=== PATIENT | male | born 1940 | race Caucasian/White ===

== ENCOUNTER 2021-05-31 14:13 | Outpatient (CLI) | payer MEDICARE, OTHER, SELFPAY | END 2021-05-31 14:14 | disposition home or self-care (01) | LOC: CHSOUTPT 14:28 | PROVIDERS: PCP Specialist; Visit Provider Specialist | DX: C44.329 Squamous cell carcinoma of skin of other parts of face (principal) | CPT/HCPCS: 88305 ==

== ENCOUNTER 2022-06-09 11:00 | Outpatient (RCR) | payer MEDICARE, OTHER, SELFPAY ==
--- NOTE | 2022-03-29 12:05 | PCCPR ---
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 Pt did state he was feeling whoozy . B/P 123/66. Call placed to cement block maker Dr. Douglas, notified of findings, no changes at this time, obtain 12 lead EKG and send report and EKG to office, states patient heart history leaves him predisposed to VTACH however it has not been witnessed yet . Pt okay to go home without further intervention at this time. No cardiac rehab restrictions. Instructed patient and to come to ER or call 911 if symptoms return or worsen.
--- NOTE | 2022-03-29 12:40 | ECG_ITS ---
Measurements Intervals [place] Rate: 72 P: 55 SD: 226 QRS: 64 QRSD: 105 T: 42 QT: 391 QTc: 430 Interpretive Statements SINUS RHYTHM WITH FIRST DEGREE AV BLOCK POSSIBLE LEFT ATRIAL ENLARGEMENT [-0.1mV P-WAVE IN V1/V2] POSSIBLE ANTERIOR MYOCARDIAL INFARCTION , OF INDETERMINATE AGE [30 ms Q WAVE IN V3/V4, OR R < 0.2 mV IN V4] NONSPECIFIC ST ABNORMALITY ABNORMAL ECG NO PREVIOUS ECG AVAILABLE FOR COMPARISON Electronically Signed On 03-30-2022 10:12:52 MONORAIL CAR OPERATOR by Gumaro Duncan M.D.
== END 2022-06-09 14:45 | disposition home or self-care (01) ==
DX: Z48.812 Encounter for surgical aftercare following surgery on the circulatory system (principal); Z98.890 Other specified postprocedural states
CPT/HCPCS: 93005; 93798

== ENCOUNTER 2022-12-18 07:46 | Outpatient (CLI) | payer MEDICARE, OTHER, SELFPAY | END 2022-12-18 07:47 | disposition home or self-care (01) | DX: R94.128 Abnormal results of other function studies of ear and other special senses (principal); Z01.118 Encounter for examination of ears and hearing with other abnormal findings; H90.3 Sensorineural hearing loss, bilateral | CPT/HCPCS: 92557; 92567 ==

== ENCOUNTER 2023-10-02 13:55 | Outpatient (CLI) | payer MEDICARE, OTHER, SELFPAY | END 2023-10-02 13:56 | disposition home or self-care (01) | LOC: CHSLAB 13:58 | PROVIDERS: PCP Specialist; Visit Provider Specialist | DX: C44.42 Squamous cell carcinoma of skin of scalp and neck (principal) | CPT/HCPCS: 88305 ==

== ENCOUNTER 2024-05-27 12:57 | Outpatient (CLI) | payer MEDICARE, OTHER, SELFPAY ==
--- OUTSIDE RECORDS SUMMARY | 2024-05-27 14:07 | XMS_ITS | Clinical Summary ---
Author Organization [facility] Address [address] [place] [id number] Care Team Providers Care Recreation Activities Coordinator Name Role Phone Unavailable Primary Care Provider Unavailabl e Social History Tobacco Use Types Packs/Day Years Used Date Smoking Tobacco: Never Assessed Sex and Gender Information Value Date Recorded Sex Assigned at Not on file Legal Sex Male 2:11 PM CDT Gender Identity Not on file Sexual Orientation Not on file Plan of Treatment Health Maintenance Due Date Last Done Comments DTaP, Tdap and Td Vaccines ( 1 - Tdap) 02/07/1959 Zoster Vaccines (1 of 2) 02/07/1990 Annual Medicare Wellness Visit 02/07/2005 Pneumococcal Vaccine: 65+ Ye ars (1 of 1 - PCV) 02/07/2005 RSV Immunization or 60+ Years (1 - 1-dose 75+ series) 02/07/2015 COVID-19 Vaccine ( - 2023-2 5 season) 2023 Meningococcal B Vaccine Aged Out No l onger eligible based on patient's age to complete this topic Meningococcal Vaccine Aged Out No chelsea melly eligible based on patient's age to complete this topic RSV Immunizations Under 20 Months Aged Out No longer eligible based on patient's age to complete [place] [id number] [facility]
--- OUTSIDE RECORDS SUMMARY | 2024-05-27 14:07 | XMS_ITS | Clinical Summary ---
Author Organization [facility] Address [facility] [facility] [address] [place] [address] Care Team Providers Care Milling Machine Operator Name Role Phone Unavailable Primary Care Provider Unavailabl e Source Comments [facility],non-owned Affiliates and Associated Physician Practices is amultiple site organization consisting of ambulatory clinics and hospital sitesin [place], [place], [place] and [place]. This disclosure is being madepursuant to the Care Everywhere program and may not contain all information available regarding this patient. Last updated 17.[facility] Allergies Active Allergy Reactions Criticality Noted Date Comments Levofloxacin Rash Low 02/04/2015 Medications * Be aware that medications may not be up to date on this document. Alwaysverify current medications with the patient. Medication Sig Dispensed Refills Start Date End Date Status tamsulosin (FLOMAX) 0.4 MG capsule Take one tab every other day Active travoprost, TIMOTHY free, (TRAVATAN Z) 0.004 % ophthalmic solution Instill 1 Drop into both eyes Active metoprolol succinate XL 24hr (TOPROL XL) 50 MG tablet Take 50 mg by mouth once daily Active [place]-3 Fatty Acids (OMEGA 3 PO) Active atorvastatin (LIPITOR) 10 MG tablet Take 10 mg by mouth at bedtime Active Vitamin D3 (CHOLECALCIFEROL) 2000 UNITS capsule Take 2,000 Units by mouth once daily Take 1-6 daily as needed. Active Cholecalciferol (D3 HIGH POTENCY) 2000 UNITS take 3 tablets daily 08/25/2013 Active aspirin (ASPIRIN) 81 MG tablet Take 81 mg by mouth once daily Active Active Problems Problem Noted Date Diagnosed Date Hypertrophic obstructive cardiomyopathy (HOCM) 0 09/17/2019 Overview (09/17/2019): 09/14 Echo - Vigorous LV function with EF > 70% - Mild - mod Conc LVH - SILVINO with gradients < 20 - Post MV leaflet prolapse with mod MR; mod TR Benign hypertensive heart disease without heart failure 02/11/2015 Overview (03/21/2016): 02/09 CAD/Cath - minimal CAD - Hyperdynamic LV function with intracavitary gradient - increased EDP 03/14 Echo - Mod LVH, normal EF - 65% - MV leaflet thickening with mod MR; mild-mod TR - gradient of 40 with valsalva in aortic outflow tract with SILVINO Abnormal cardiovascular stress test 02/04/2015 Overview (02/11/2015): 02/09 CAD/Cath - minimal CAD - Hyperdynamic LV function with intracavitary gradient - increased EDP MVP (mitral valve prolapse) 02/04/2015 Overview (03/21/2016): 02/09 Echo ([facility]) - normal LV function - Myxomatous MVP, ? Other abnormality ? SILVINO 09/10 Echo - Mod LVH, normal EF - 65% - MV leaflet thickening with mild MR 03/14 Echo - Mod LVH with severe basal septal LVH, normal EF - 65% - MV leaflet thickening with mod MR; mild-mod TR - gradient of 60 with valsalva in aortic outflow tract with SILVINO; no gradient at rest HTN (hypertension) 02/04/2015 Resolved Problems Problem Noted Date Diagnosed Date Resolved Date Chest discomfort 02/04/2015 02/11/2015 Social History Tobacco Use Types Packs/Day Years Used Date Smoking Tobacco: Never Smokeless Tobacco: Never Alcohol Use Standard Drinks/Week Comments Not Asked 0 (1 standard drink = 0.6 oz pur e alcohol) Sex and Gender Information Value Date Recorded Sex Assigned at Not on file Gender Identity Not on file Sexual Orientation Not on file Last Filed Vital Signs Vital Sign Reading Time Taken Comments Blood Pressure 108/48 09/17/2019 2:11 PM CDT Pulse 54 09/17/2019 2:11 PM CDT Temperature 36.9 C (98.5 F) 01/12/2016 11:40 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 Respiratory Rate 16 03/18/2015 11:55 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 Oxygen Saturation 96% 09/17/2019 2:11 PM CDT Inhaled Oxygen Concentration - - Weight 82.4 kg (181 lb 9.6 oz) 09/17/2019 2:11 P M CDT Height 172.7 cm (5' 8 ) 09/17/2019 2:11 PM CDT Body Mass Index 27.61 09/17/2019 2:11 PM CDT Plan of Treatment Health Maintenance Due Date Last Done Comments MEDICARE AWV 12 MONTHS 1940 DTAP/TDAP/TD VACCINES (1 - Tdap) 02/07/1959 PNEUMOCOCCAL VACCINE 50+ (1 of 1 - PCV) 02/07/1990 ZOSTER VACCINE (1 of 2) 02/07/1990 Respiratory Syncytial Virus (RSV) Vaccine Pt: or over 60 yrs (1 - 1-dose 75+ series) 02/07/2015 COVID-19 VACCINE ( - 2023-2 5 season) 2023 INFLUENZA VACCINE (#1) 2023 7, 02/22/2012 DEPRESSION SCREENING 02/27/2024 HEPATITIS B VACCINE Aged Out No longe r eligible based on patient's age to complete this topic HIB VACCINE Aged Out No longer eligi ble based on patient's age to complete this topic HPV VACCINE Aged Out No longer eligi ble based on patient's age to complete this topic MENINGOCOCCAL (Group B) VACCINE SHARED DECISION-MAKING Aged Out No longer eligible based on patient's age to complete this topic MENINGOCOCCAL GROUPS A/C/Y/W VACCINE Aged Out No longer eligible b ased on patient's age to complete this topic
--- OUTSIDE RECORDS SUMMARY | 2024-05-27 14:07 | XMS_ITS | Encounter Summary ---
Author Organization [facility] [employer] [facility] Address [address] [place] [address] Phone Care Team Providers Care Planned Giving Officer Name Role Phone Siddharth Javed MD Primary Care Provider [phone] Vonnie Holly PT Unavailable Unavailable Galina Landry TEXTILE DYER Unavailable Unavailab Rina Burleson TEXTILE DYER Unavailable Unavailable Alla Bruce PT Unavailable Unavailable Kishan Romero MD Unavailable [phone] Ruddy Galdamez DO Primary Care Provider [phone] Renetta Doan RN Unavailable [phone] Willam Suarez MD Unavailable [phone] Willam Suarez MD Unavailable [phone] Encounter Details Date Type Department Care Team (Late st Contact Info) Description 06/28/2017 Orders Only [facility] ProviderAngela MD [facility] [place] [address] Social History Tobacco Use Types Packs/Day Years Used Date Smoking Tobacco: Never Smokeless Tobacco: Never Alcohol Use Standard Drinks/Week Comments Yes 0 (1 standard drink = 0.6 oz pur e alcohol) occassional Sex and Gender Information Value Date Recorded Sex Assigned at Not on file 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 us Historical Provider LAB BLOOD ORDERABLES Candida l Result documented in this encounter Visit Diagnoses Not on filedocumented in this encounter Additional Health Concerns Infection Onset Date Last Indicated Resolved Time COVID: Suspected 11/01/2021 11/01/2021 11/01/2021 10:30 AM CDT COVID: Suspected 11/03/2021 11/03/2021 11/03/2021 2:20 PM CDT COVID: Suspected 11/14/2021 11/14/2021 11/14/2021 11:56 PM CDT COVID: Suspected 10/26/2022 10/26/2022 10/26/2022 10:15 AM CDT COVID19 10/26/2022 10/26/2022 11/05/2022 3:05 AM CDT COVID: Recovered Comment:Added based on recent COVID infection. 11/05/2022 12/04/2022 02/03/2023 3:[address] documented as of this encounter Care Teams Planned Giving Officer Relationship Specialty Start Date End Date Siddharth Javed MD [address] [place] [address] PCP - General 05/26/16 10/15/19 Ruddy Galdamez DO [address] [place] [address] PCP - General Family Medicine 10/16/19 Vonnie Holly, PT Physical Therapist Physical Therapy 09/11/17 Gris, Galina, TEXTILE DYER Kinesiology Professor Physical Therapy 09/17/17 Rina Beasley, TEXTILE DYER Kinesiology Professor Physical Therapy 09/24/17 Alla Bruce, PT Physical Therapist Physical Therapy 10/04/17 Kishan Romero MD [address] [place] [address] Referring Physician Orthopedic Surgery 11/05/17 Renetta Doan RN [address] [place] [address] [facility] [address] [place] [address] Foil Wrapper 01/23/22 03/09/22 Willam Suarez MD [address] [place] [address] [facility] [address] [place] [address] Transit Clerk Cardiology 06/29/22 12/05/22 Willam Suarez MD [address] [facility] [address] [place] [address] Transit Clerk Cardiology 06/29/22 documented as of this encounter
--- OUTSIDE RECORDS SUMMARY | 2024-05-27 14:07 | XMS_ITS | Referral Summary ---
Author Organization [facility] Address [address] [place] [address] Care Team Providers Care Pole Classifier Name Role Phone Vonnie Holly PT Unavailable Unavailable Galina Landry HOME DEMONSTRATION AGENT Unavailable Unavailab Rina Burleson HOME DEMONSTRATION AGENT Unavailable Unavailable Alla Bruce PT Unavailable Unavailable Kishan Romero MD Unavailable [phone] Ruddy Galdamez DO Primary Care Provider [phone] Willam Suarez MD Unavailable Encounters Date Type Department Care Team Description 04/24/2024 Results Follow-Up [facility] Primary Care at [address] [address] Selam Gamez DNP 04/23/2024 2:09 PM PRESCHOOL PROGRAM DIRECTOR - 04/23/2024 11:59 PM PRESCHOOL PROGRAM DIRECTOR Hospital Encounter [address] [address] Discharge Disposition: Discharge to home or self care 04/23/2024 1:50 PM PRESCHOOL PROGRAM DIRECTOR Lab [facility] Primary Care at [address] [place] [id number] Need for hepatitis B screening test; Medicare annual wellness visit, subsequent; Screening for prostate cancer 04/23/2024 1:00 PM PRESCHOOL PROGRAM DIRECTOR Office Visit [facility] Primary Care at [facility] [address] [address] Selam Gamez DNP Medicare annual wellness visit, subsequent (Primary Dx); Obstructive sleep apnea treated with continuous positive airway pressure (CPAP); Vitamin D deficiency; Primary hypertension; Hypertensive heart disease without heart failure; Hypertrophic obstructive cardiomyopathy (HOCM) (HCC); Idiopathic hypertrophic subaortic stenosis (HCC); MVP (mitral valve prolapse); Nonrheumatic mitral valve regurgitation; H/O mitral valve repair; Paroxysmal atrial fibrillation (HCC); NSVT (nonsustained ventricular tachycardia) (HCC); Mixed hyperlipidemia; Chronic venous stasis; Benign prostatic hyperplasia with weak urinary stream; Memory deficit; Screening for prostate cancer; Need for hepatitis B screening test from Last 3 Months Allergies Active Allergy Reactions Criticality Noted Date Comments Levofloxacin Rash High 02/04/2015 Vancomycin Itching Low 11/17/2021 Vancomycin infusion Medications cholecalciferol (Vitamin D3) 2000 unit tabletIndicatio ns:Vitamin D Deficiency Take 1 tablet (2,000 Units total) by mouth daily 09/10/19 20 030 Active zinc 50 mg tabletIndicatio ns:Zinc Deficiency Take 1 each by mouth every other day. Take 1 every other day Indications: deficiency of zinc Active magnesium oxide (MAG-OX) 400 mg (241.3 mg elemental magnesium) tabletIndicatio ns:hypomagnesem ia Take 1 tablet (400 mg total) by mouth daily as needed Active travoprost (TRAVATAN Z) 0.004 % dropsIndication s:open angle glaucoma Administer 1 drop into both eyes nightly Active finasteride (PROSCAR) 5 mg tabletIndicatio ns:benign prostatic hyperplasia with lower urinary tract sx Take 1 tablet (5 mg total) by mouth 2 (two) times a week Sunday and Sunday Active multivitamin/ir on/folic acid (CENTRUM COMPLETE ORAL)Indication s:supplement Take 1 tablet by mouth daily Active antiox #8/om3/dha/epa/ lut/zeax (PRESERVISION AREDS 2, OMEGA-3, ORAL)Indication s:Eye Vitamin Take 2 tablets by mouth daily. Indications: Eye Vitamin Active mupirocin (BACTROBAN) 2 % ointment Apply 1 application (deactivated) topically daily as needed 04/04/19 23 Active sildenafil citrate (SILDENAFIL ORAL) Take 20 mg by mouth as directed 04/18/19 23 Active metoprolol XL (TOPROL-XL) 50 mg extended release tablet TAKE 1 TABLET(50 MG) BY MOUTH DAILY 90 tablet 2 10/30/19 24 Active tamsulosin (FLOMAX) 0.4 mg extended release capsule TAKE 1 CAPSULE(0.4 MG) BY MOUTH DAILY 90 capsule 1 03/24/19 25 Active atorvastatin (LIPITOR) 10 mg tablet TAKE 1 TABLET(10 MG) BY MOUTH DAILY 90 tablet 1 03/24/19 25 Active Xarelto 20 mg tablet TAKE 1 TABLET(20 MG) BY MOUTH DAILY WITH DINNER 90 tablet 3 05/27/19 25 Active Xarelto 20 mg tablet TAKE 1 TABLET BY MOUTH EVERY DAY WITH DINNER 90 tablet 3 01/16/20 24 025 Discontinued Active Problems Problem Noted Date Diagnosed Date Hypersomnolence 10/04/2023 Assessment & Plan (10/04/2023 11:47 AM CDT): Napping during the day, only 8.5 hours in a 24 hour period, but looks sleepy to me. But his ESS today was 14? Ov ox on these settings to confirm machine is effective concern could have some unreported CSA. Paroxysmal atrial fibrillation 05/22/2022 Assessment & Plan (08/10/2023 1:19 PM CDT): Postoperative atrial fibrillation, without recurrence documented. I recommended continued beta-carlos therapy and follow-up. The patient has a [id number] score of 4 (annualized risk of stroke 4%). I have therefore recommended continued anticoagulation for thromboprophylaxis. Assessment & Plan (01/26/2023 1:17 PM PRESCHOOL PROGRAM DIRECTOR): No recent atrial fibrillation has been detected. I am inclined to believe that his atrial arrhythmia was likely postoperative. We will continue to follow for recurrence. If the patient has an additional episode of shortness of breath, event monitoring will be performed. Assessment & Plan (07/10/2022 1:18 PM CDT): Paroxysmal atrial fibrillation, apparently primarily postoperative. Dr. Carranza has pointed out to me that the patient does much better in normal rhythm. At this point, he is maintaining sinus without antiarrhythmic drugs, we will continue to follow. Assessment & Plan (05/22/2022 6:04 PM CDT): The patient has paroxysmal atrial fibrillation that is symptomatic. Dr. Carranza has advised me that the patient experiences far less systolic anterior motion of his mitral valve during regular rhythms, and his valvular heart disease/hypertrophic cardiomyopathy likely potentiate his atrial arrhythmia. At present, he is in sinus rhythm. I recommended that he wear an event recorder for 7 days in order to determine his current burden of atrial arrhythmia. We will determine appropriate options after this information has returned. NSVT (nonsustained ventricular tachycardia) 04/27 Assessment & Plan (05/22/2022 6:06 PM CDT): The patient was recently found to have nonsustained ventricular tachycardia while at cardiac rehab. He was offered a defibrillator, which the patient was taken aback by. As above, we will obtain an event recorder to determine his burden of arrhythmia. If he is found to have a significant degree of nonsustained ventricular tachycardia, placement of defibrillator may be an appropriate option. We will discuss after the results of these tests are known. H/O mitral valve repair 01/24/2022 Assessment & Plan (02/01/2022 4:43 PM PRESCHOOL PROGRAM DIRECTOR): Mitral valve repair 01/[address] Carranza. Some LV dysfunction after surgery. Discharged from hospital 01/20. He lost 16 lbs from 01/20 to 01/24. Weight is now stable. His blood pressure has been a little on the soft side. Dr. Krause his technician chemical cleaning reduced amlodipine from 5mg to 2.5mg today. He continues on metoprolol tartrate 50mg twice daily. Plans on having echocardiogram this Sunday and seeing Dr. Carranza next Sunday, then start cardiac rehab. Patient to wait on starting exercise regimen as he needs monitoring which will be provided at cardiac rehab. Continues on eliquis for anticoagulation. Assessment & Plan (01/24/2022 1:57 PM PRESCHOOL PROGRAM DIRECTOR): Mitral valve repair 01/12/[address] Carranza. He had some issues with LV dysfunction after surgery. He remained in hospital until 01/20. Labs looked good at discharge. He feels well. BP on soft side at 90/60. Notable that he had 16 lbs weight loss since 01/20, likely elimination of IV fluids. Patient feels well. Home BP from 01/22 was 118/68. I discussed with Dr. Galdamez and no changes made to BP regimen today. Recommend patient check another home BP today and call me back. Return in one week for BP check in office. Follow up with cardiology 02/[address] Carranza 02/08 as planned. BMI 29.0-29.9,adult 03/22/2021 Assessment & Plan (02/01/2022 4:33 PM PRESCHOOL PROGRAM DIRECTOR): BMI Follow-up includes: nutrition counseling and education provided. Assessment & Plan (01/24/2022 1:45 PM PRESCHOOL PROGRAM DIRECTOR): BMI Follow-up includes: nutrition counseling and exercise counseling. Assessment & Plan (05/24/2021 11:49 AM CDT): BMI Follow-up includes: nutrition counseling and exercise counseling. Assessment & Plan (03/22/2021 12:46 PM PRESCHOOL PROGRAM DIRECTOR): BMI Follow-up includes: nutrition counseling and exercise counseling. Anticoagulation management encounter 03/22/2021 Assessment & Plan (01/26/2023 1:18 PM PRESCHOOL PROGRAM DIRECTOR): The patient has a [id number] score of 4 (annualized risk of stroke 4%). I have therefore recommended continued anticoagulation. He has a history of hematuria. If this recurs, percutaneous left atrial appendage occlusion device placement can be considered. Assessment & Plan (07/10/2022 1:22 PM CDT): The patient is presently anticoagulated for thromboprophylaxis with rivaroxaban. Assessment & Plan (03/22/2021 12:53 PM PRESCHOOL PROGRAM DIRECTOR): 81 yr old presents for annual physical. Reduced metoprolol as BP hypotensive and patient feeling dizzy. No longer getting colon screening at age 81. Fasting labs will be drawn today. Follow up in two months for chronic cough/shortness of breath after having COVID infection in January 2021. Refuses COVID, flu vaccinations Hypertrophic obstructive cardiomyopathy (HOCM) 0 09/17/2019 Overview (07/02/2020): 09/14 Echo - Vigorous LV function with EF > 70% - Mild - mod Conc LVH - SILVINO with gradients < 20 - Post MV leaflet prolapse with mod MR; mod TR 09/14 Echo - Vigorous LV function with EF > 70% - Mild - mod Conc LVH - SILVINO with gradients < 20 - Post MV leaflet prolapse with mod MR; mod TR Assessment & Plan (08/10/2023 1:22 PM CDT): On metoprolol, doing well. No syncope or attributable symptoms have been present. He has a history of nonsustained ventricular tachycardia, which constitutes a 2B indication for defibrillator placement. The patient does not wish to consider this option at present. The patient will follow-up with me in 12 months for an office visit and twelve- lead ECG. Assessment & Plan (01/26/2023 1:19 PM PRESCHOOL PROGRAM DIRECTOR): Doing well with beta-carlos therapy. No syncope or attributable symptoms. He has a 2B indication for defibrillator placement (nonsustained ventricular tachycardia). The patient does not wish to proceed unless the situation changes. Assessment & Plan (05/24/2021 11:53 AM CDT): Known diagnosis, follows with Dr. Krause routinely. Hitory of mitral valve prolapse with moderate MR, moderate TR. Assessment & Plan (09/12/2020 4:16 PM CDT): Known diagnosis, followed by Dr. Krause who is his technician chemical cleaning. Patient's blood pressure remains very well controlled. He remains asymptomatic. Continue with current plan Assessment & Plan (03/11/2020 6:25 PM PRESCHOOL PROGRAM DIRECTOR): Known diagnosis, doing well. Asymptomatic. Followed by Cardiology (Dr. Krause). Continue with current therapy, continue to control blood pressure, follow up with Cardiology as scheduled. Strict return precautions given. Umbilical hernia without obstruction and without gangrene 09/10/2019 Assessment & Plan (03/22/2021 12:45 PM PRESCHOOL PROGRAM DIRECTOR): Mild reducible hernia on exam, not tender. Recommend monitoring, follow up as needed. Assessment & Plan (09/12/2020 4:16 PM CDT): Continues to be noted on exam, mild, is reducible, asymptomatic. Follow-up as needed. Assessment & Plan (09/10/2019 9:38 AM CDT): Small umbilical hernia; minimally symptomatic. Easily reducible. I have explained that surgical repair is elective and may be deferred if symptoms are not significant. He is referred to Dr. Flaquito Garcia to discuss surgery options. Chronic venous stasis 09/03/2018 Assessment & Plan (09/12/2020 4:15 PM CDT): Bilateral, minimal associated skin changes noted on exam. Patient was encouraged to continue with compression stockings, follow-up in 6 months Assessment & Plan (10/16/2019 1:09 PM CDT): Mild edema noted on exam, continue with compression stockings. Follow-up if symptoms are worsening Assessment & Plan (09/03/2018 12:11 PM CDT): Take furosemide 20 mg every day along with daily potassium. Wear venous compression stockings especially when up on feet for long periods of time. Mixed hyperlipidemia 05/02/2018 Assessment & Plan (01/24/2022 1:51 PM PRESCHOOL PROGRAM DIRECTOR): Continue atorvastatin 10mg daily. Assessment & Plan (11/16/2021 5:52 PM CDT): Continue atorvastatin Assessment & Plan (11/04/2021 4:59 PM CDT): On atorvastatin as an outpatient and tolerating well, continue on admission Assessment & Plan (09/12/2020 4:16 PM CDT): Patient is on atorvastatin and tolerating medication well. No side effects reported. Continue with current therapy, follow-up on lipid panel at next well visit Assessment & Plan (03/11/2020 6:25 PM PRESCHOOL PROGRAM DIRECTOR): On statin and tolerating well, continue with current therapy, check lipid panel today. Assessment & Plan (10/16/2019 1:09 PM CDT): On statin and tolerating well, continue with current therapy Assessment & Plan (09/10/2019 9:36 AM CDT): Lab Results Component Value Date CHOL 112 03/07/2019 CHOL 117 08/28/2017 CHOL 120 12/19/2016 Lab Results Component Value Date HDL 50 03/07/2019 HDL 64 08/28/2017 HDL 63 12/19/2016 Lab Results Component Value Date LDLCALC 51 03/07/2019 LDLCALC 46.00 08/28/2017 LDLCALC 50.00 12/19/2016 LDL 76 10/04/2015 LDL 105 (H) 09/30/2014 LDL 101 (H) 08/25/2013 Lab Results Component Value Date TRIG 55 03/07/2019 TRIG 35 08/28/2017 TRIG 35 12/19/2016 Update lab as per orders. Assessment & Plan (03/07/2019 11:34 AM PRESCHOOL PROGRAM DIRECTOR): Lab Results Component Value Date CHOL 117 08/28/2017 CHOL 120 12/19/2016 CHOL 133 (L) 10/04/2015 Lab Results Component Value Date HDL 64 08/28/2017 HDL 63 12/19/2016 HDL 49 10/04/2015 Lab Results Component Value Date LDLCALC 46.00 08/28/2017 LDLCALC 50.00 12/19/2016 LDL 76 10/04/2015 LDL 105 (H) 09/30/2014 LDL 101 (H) 08/25/2013 Lab Results Component Value Date TRIG 35 08/28/2017 TRIG 35 12/19/2016 TRIG 42 10/04/2015 Update lab as per orders. Assessment & Plan (09/03/2018 12:02 PM CDT): Lab Results Component Value Date CHOL 117 08/28/2017 CHOL 120 12/19/2016 CHOL 133 (L) 10/04/2015 Lab Results Component Value Date HDL 64 08/28/2017 HDL 63 12/19/2016 HDL 49 10/04/2015 Lab Results Component Value Date LDLCALC 46.00 08/28/2017 LDLCALC 50.00 12/19/2016 LDL 76 10/04/2015 LDL 105 (H) 09/30/2014 LDL 101 (H) 08/25/2013 Lab Results Component Value Date TRIG 35 08/28/2017 TRIG 35 12/19/2016 TRIG 42 10/04/2015 Assessment & Plan (05/02/2018 11:29 AM PRESCHOOL PROGRAM DIRECTOR): Lab Results Component Value Date CHOL 117 08/28/2017 CHOL 120 12/19/2016 CHOL 133 (L) 10/04/2015 Lab Results Component Value Date HDL 64 08/28/2017 HDL 63 12/19/2016 HDL 49 10/04/2015 Lab Results Component Value Date LDLCALC 46.00 08/28/2017 LDLCALC 50.00 12/19/2016 LDL 76 10/04/2015 LDL 105 (H) 09/30/2014 LDL 101 (H) 08/25/2013 Lab Results Component Value Date TRIG 35 08/28/2017 TRIG 35 12/19/2016 TRIG 42 10/04/2015 Complete tear of anterior cruciate ligament of l eft knee 10/26/2017 Primary osteoarthritis of left knee 08/28/2017 Assessment & Plan (03/07/2019 11:51 AM PRESCHOOL PROGRAM DIRECTOR): Stable. Assessment & Plan (05/02/2018 11:30 AM PRESCHOOL PROGRAM DIRECTOR): Recent steroid injection per Orthopedics with good outcome. Assessment & Plan (08/28/2017 11:56 AM CDT): Recent increased pain L knee. History of knee injury . X-ray ordered. 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 Assessment & Plan (03/11/2020 6:23 PM PRESCHOOL PROGRAM DIRECTOR): Known diagnosis, does well with the use of as needed sildenafil, continue with current therapy. Assessment & Plan (10/16/2019 1:09 PM CDT): Known diagnosis, followed by Urology. Failed treatment with phosphodiesterase inhibitors. He is working with his insurance to obtain a pump. Follow-up with at urology as scheduled Assessment & Plan (09/10/2019 9:42 AM CDT): Sildenafil refilled. Assessment & Plan (03/07/2019 11:35 AM PRESCHOOL PROGRAM DIRECTOR): Continue sildenafil as needed. Assessment & Plan (09/03/2018 12:08 PM CDT): Satisfactory response to sildenafil. Discussed lower-cost availability at [facility]. Assessment & Plan (05/02/2018 11:38 AM PRESCHOOL PROGRAM DIRECTOR): Continue sildenafil as needed. Assessment & Plan (08/28/2017 12:07 PM CDT): Trial generic sildenafil 20-40 mg daily as needed. Primary hypertension 05/04/2016 Overview (10/23/2016): HTN (hypertension) Assessment & Plan (02/01/2022 4:45 PM PRESCHOOL PROGRAM DIRECTOR): BP soft, 104/62 today. Amlodipine reduced today by technician chemical cleaning from 5mg to 2.5mg. Home health is monitoring his blood pressure and will let us know if too low. Has follow up with surgeon next week. Assessment & Plan (01/24/2022 1:51 PM PRESCHOOL PROGRAM DIRECTOR): BP on soft side today. Monitor closely. Assessment & Plan (12/19/2021 4:32 PM CDT): Very well controlled in clinic today, continue with current medication Assessment & Plan (11/16/2021 5:51 PM CDT): Well controlled as an outpatient, continue on admission Assessment & Plan (11/04/2021 4:58 PM CDT): Well controlled as an outpatient, continue medications on admission Assessment & Plan (05/24/2021 11:50 AM CDT): Blood pressure at goal, doing better since metoprolol was reduced from 50mg to 25mg daily. Today BP 120/70. BP at home fluctuates pretty significantly. Recommended he use left arm for BP checks. To bring BP machine to follow up in three months. Notable that today BP easier to hear in left arm. Assessment & Plan (03/22/2021 12:43 PM PRESCHOOL PROGRAM DIRECTOR): Blood pressure is hypotensive, recommend reducing metoprolol from 50mg to 25mg daily. Today BP at 100/60. Follow up in two months for repeat BP check. Assessment & Plan (09/12/2020 4:15 PM CDT): Continues to be very well controlled on metoprolol at current dose. Will continue with current therapy, follow-up in 6 months, sooner if questions or concerns Assessment & Plan (03/11/2020 6:23 PM PRESCHOOL PROGRAM DIRECTOR): Well controlled in clinic today, continue with current therapy Assessment & Plan (10/16/2019 1:09 PM CDT): Well controlled in clinic today, continue with current therapy Assessment & Plan (09/10/2019 9:35 AM CDT): Wt Readings from Last 3 Encounters: 09/10/19 79.6 kg (175 lb 8 oz) 07/04/19 84.8 kg (187 lb) 03/07/19 85.1 kg (187 lb 9.6 oz) Temp Readings from Last 3 Encounters: 09/10/19 36.2 C (97.2 F) (Oral) 03/07/19 36.3 C (97.4 F) (Oral) 01/17/19 36.8 C (98.2 F) (Oral) BP Readings from Last 3 Encounters: 09/10/19 126/60 03/07/19 118/74 01/17/19 128/72 Pulse Readings from Last 3 Encounters: 09/10/19 57 03/07/19 68 01/17/19 60 Denies headache, dizziness, chest pain, palpitations, shortness of breath, edema, orthopnea, PND. Continue current medications unchanged. Assessment & Plan (03/07/2019 11:35 AM PRESCHOOL PROGRAM DIRECTOR): Vitals BP 118/74 (BP Location: Left arm, Patient Position: Sitting) Pulse 68 Temp 36.3 C (97.4 F) (Oral) Resp 16 Ht 175.3 cm (5' 9.02 ) Wt 85.1 kg (187 lb 9.6 oz) BMI 27.69 kg/m Denies headache, dizziness, chest pain, palpitations, shortness of breath, edema, orthopnea, PND. Assessment & Plan (09/03/2018 12:02 PM CDT): Vitals BP 109/70 Pulse 58 Temp 36.4 C (97.6 F) Resp 16 Ht 175.3 cm (5' 9.02 ) Wt 85.3 kg (188 lb 1.6 oz) BMI 27.76 kg/m Denies headache, dizziness, chest pain, palpitations, shortness of breath, edema, orthopnea, PND. Assessment & Plan (05/02/2018 11:38 AM PRESCHOOL PROGRAM DIRECTOR): Vitals BP 118/68 (BP Location: Right arm, Patient Position: Sitting) Pulse 52 Temp 36.6 C (97.8 F) (Oral) Resp 16 Ht 175.3 cm (5' 9.02 ) Wt 84.6 kg (186 lb 9.6 oz) BMI 27.54 kg/m Denies headache, dizziness, chest pain, palpitations, shortness of breath, edema, orthopnea, PND. Assessment & Plan (08/28/2017 12:15 PM CDT): Denies headache, dizziness, chest pain, palpitations, shortness of breath, edema, orthopnea, PND. Clinically stable on present med regimen. Continue same. Nonrheumatic mitral valve regurgitation 04/05/19 16 Overview (06/02/2016): Mitral regurgitation Assessment & Plan (12/19/2021 4:31 PM CDT): Known diagnosis, most recent hospital admission with PRABHAKAR that demonstrated valvular vegetation, positive blood cultures with strep mutans. Patient has now been on full 6 weeks of antibiotics, will have last dose this Sunday. Patient is doing very well. Remains completely asymptomatic. No recurrence of fever. Says that he feels great, he is anxious to have his PICC line removed. He has not yet scheduled follow-up with CT surgery, was hoping to get their contact information today. Denies any further issues with shortness of breath or dizziness. Assessment & Plan (11/18/2021 1:11 PM CDT): Patient with trans esophageal echocardiogram completed 17 November, severe mitral valve regurgitation, was mild on transthoracic echo completed earlier this month. Evident vegetation, likely due to streptococcal bacteremia. Cardiothoracic surgery following, appreciate recommendations and care Idiopathic hypertrophic subaortic stenosis 04/05 Overview (06/02/2016): Idiopathic hypertrophic subaortic stenosis Assessment & Plan (07/10/2022 1:17 PM CDT): The patient has hypertrophic cardiomyopathy. No syncope. His only high-risk feature (i.e., for sudden cardiac arrest) is nonsustained ventricular tachycardia, without other SCA modifiers present. As we previously discussed, this meets a class 2B indication for defibrillator placement, and the patient does not wish to proceed. He is planning on establishing care with a technician chemical cleaning in the [facility]. We may consider stress testing in the near future, as an abnormal blood pressure response would make him higher risk. Assessment & Plan (11/16/2021 5:52 PM CDT): Known diagnosis with mild LVOT obstruction, recent echocardiogram during previous hospitalization unchanged from baseline, no obvious vegetation. Patient with now streptococci noted on blood cultures, discussed with Cardiology, need for PRABHAKAR, scheduled for tomorrow morning. NPO after midnight Assessment & Plan (11/04/2021 4:58 PM CDT): Known diagnosis, left ventricular outflow tract obstruction is noted but pressure is unchanged from previous echoes. No evidence of vegetation on echocardiogram. Patient overall doing well. Continue with blood pressure control, adequate hydration. Recommend follow-up with outpatient Cardiology as scheduled. Plan for discharge today Assessment & Plan (03/22/2021 12:57 PM PRESCHOOL PROGRAM DIRECTOR): Patient follows routinely with cardiology. Assessment & Plan (10/16/2019 1:09 PM CDT): Known diagnosis, followed by Cardiology. Continue with current therapy. Follow- up with scheduled. Assessment & Plan (09/10/2019 9:35 AM CDT): Monitored by Cardiology (Dr. Virgilio Krause): 03/19/2019 ASSESSMENT: 1) Mild CAD 2) LVH with hypertensive heart dx and intracavitary gradient by Cath/SILVINO/MR and aortic aoutflow gradient 3) MVP by recent data 4) HTN 5) Dyslipidemia - Data reviewed - present CV problems are stable PLAN: - continue current therapy - echo in follow up - discussed exercise, healthy lifestyle choices - diuretics prn - follow up in 6 mo Virgilio Krause MD Assessment & Plan (09/03/2018 12:02 PM CDT): Monitored by cardiology (Dr. Virgilio Krause). Assessment & Plan (05/02/2018 11:38 AM PRESCHOOL PROGRAM DIRECTOR): Monitored by Cardiology (Dr. Virgilio Krause) Hypertensive heart disease without heart failure 02/11/2015 Overview (10/23/2016): Overview: 02/09 CAD/Cath - minimal CAD - Hyperdynamic LV function with intracavitary gradient - increased EDP 03/14 Echo - Mod LVH, normal EF - 65% - MV leaflet thickening with mod MR; mild-mod TR - gradient of 40 with valsalva in aortic outflow tract with SILVINO Assessment & Plan (03/22/2021 12:43 PM PRESCHOOL PROGRAM DIRECTOR): Follows with Dr. Krause of cardiology. Abnormal cardiovascular stress test 02/04/2015 Overview (07/02/2020): Overview: 02/09 CAD/Cath - minimal CAD - Hyperdynamic LV function with intracavitary gradient - increased EDP 02/09 CAD/Cath - minimal CAD - Hyperdynamic LV function with intracavitary gradient - increased EDP MVP (mitral valve prolapse) 02/04/2015 Overview (07/02/2020): Overview: 02/09 Echo ([facility]) - normal LV function - Myxomatous MVP, ? Other abnormality ? [facility] 09/10 Echo - Mod LVH, normal EF - 65% - MV leaflet thickening with mild MR 03/14 Echo - Mod LVH with severe basal septal LVH, normal EF - 65% - MV leaflet thickening with mod MR; mild-mod TR - gradient of 60 with valsalva in aortic outflow tract with SILVINO; no gradient at rest 02/09 Echo ([facility]) - normal LV function - Myxomatous MVP, ? Other abnormality ? [facility] 09/10 Echo - Mod LVH, normal EF - 65% - MV leaflet thickening with mild MR 1/ Echo - Mod LVH with severe basal septal LVH, normal EF - 65% - MV leaflet thickening with mod MR; mild-mod TR - gradient of 60 with valsalva in aortic outflow tract with SILVINO; no gradient at rest Assessment & Plan (03/22/2021 12:56 PM PRESCHOOL PROGRAM DIRECTOR): Echo 11/2020 demonstrated EF of 70%, grade 2 LV dysfunction with increased left atrial pressure. Moderate LV hypertrophy, slightly worse at septum, mild mitral regurg. Follows with cardiology. Assessment & Plan (03/11/2020 6:26 PM PRESCHOOL PROGRAM DIRECTOR): Known diagnosis, followed by Cardiology. No shortness of breath or exercise intolerance. Continue with current therapy. Strict return precautions given. Assessment & Plan (10/16/2019 1:10 PM CDT): Followed by Cardiology, has been stable on recent echo Assessment & Plan (09/10/2019 9:36 AM CDT): Stable. Assessment & Plan (03/07/2019 11:33 AM PRESCHOOL PROGRAM DIRECTOR): Monitored by Cardiology (Virgilio Krause MD). Assessment & Plan (05/02/2018 11:20 AM PRESCHOOL PROGRAM DIRECTOR): Monitored by Cardiology (Dr. Virgilio Krause) Assessment & Plan (08/28/2017 12:14 PM CDT): Monitored by Cardiology (Dr. Virgilio Krause) Vitamin D deficiency 03/12/2014 Overview (06/02/2016): Vitamin D deficiency Assessment & Plan (03/11/2020 6:26 PM PRESCHOOL PROGRAM DIRECTOR): Known diagnosis, continue with vitamin-D supplement, recheck vitamin-D level Assessment & Plan (09/10/2019 9:36 AM CDT): Images from the original note were not included. Assessment & Plan (05/02/2018 11:39 AM PRESCHOOL PROGRAM DIRECTOR): Images from the original note were not included. Assessment & Plan (08/28/2017 12:13 PM CDT): Update lab as per orders. Benign prostatic hyperplasia with weak urinary s tream 07/12/2013 Overview (06/02/2016): BPH (benign prostatic hypertrophy) Assessment & Plan (11/16/2021 5:51 PM CDT): Continue tamsulosin Assessment & Plan (11/04/2021 4:58 PM CDT): On tamsulosin as an outpatient and symptoms are well controlled, continue with current therapy. Assessment & Plan (03/22/2021 12:42 PM PRESCHOOL PROGRAM DIRECTOR): Doing well with flomax. Continue flomax 0.4mg daily. Assessment & Plan (03/11/2020 6:23 PM PRESCHOOL PROGRAM DIRECTOR): Well controlled, continue with Flomax Assessment & Plan (10/16/2019 1:08 PM CDT): Known diagnosis, followed by Urology. Remains on tamsulosin. Recommend going to finasteride every day instead of every week, he verbalized understanding. Assessment & Plan (03/07/2019 11:36 AM PRESCHOOL PROGRAM DIRECTOR): BPH with urinary frequency and diminished stream. Assessment & Plan (05/02/2018 11:37 AM PRESCHOOL PROGRAM DIRECTOR): Continue tamsulosin. referral provided Assessment & Plan (08/28/2017 12:15 PM CDT): Stable. Obstructive sleep apnea shana latisha with continuous positive airway pressure (CPAP) 02/22/2012 Overview (06/01/2016): Obstructive sleep apnea Assessment & Plan (10/04/2023 11:46 AM CDT): Compliance data reviewed and discussed MARIAM - good compliance and response to therapy. Benefiting from therapy. Continue PAP therapy. Compliance data reviewed and discussed. Equipment maintenance discussed. RTC in one year or as needed. New Order for yearly supplies entered. AutoCPAP 10-20cm, will reduce to 8-12cm for now. Will probably need a new machine next year. Assessment & Plan (01/24/2022 1:51 PM PRESCHOOL PROGRAM DIRECTOR): Continue nightly CPAP. Assessment & Plan (12/19/2021 4:31 PM CDT): Reports good compliance with CPAP, continue current therapy Assessment & Plan (11/16/2021 5:51 PM CDT): Continue with CPAP at night Assessment & Plan (03/22/2021 12:45 PM PRESCHOOL PROGRAM DIRECTOR): Patient with good compliance with using CPAP machine. Assessment & Plan (09/12/2020 4:16 PM CDT): Known diagnosis, reports good compliance with CPAP at night. His blood pressure remains well controlled. Discussed the importance of continuing with therapy as it relates to chronic illness. He verbalized understanding Assessment & Plan (03/11/2020 6:26 PM PRESCHOOL PROGRAM DIRECTOR): Known diagnosis, uses CPAP at night, reports good compliance. Feels that the therapy is working well for him, follow-up with sleep medicine as scheduled. Assessment & Plan (10/16/2019 1:10 PM CDT): Known diagnosis, uses CPAP at night, compliant with current therapy. Follow-up with sleep medicine as scheduled. Assessment & Plan (09/10/2019 9:37 AM CDT): Continue CPAP Assessment & Plan (03/07/2019 11:32 AM PRESCHOOL PROGRAM DIRECTOR): Continue CPAP. Assessment & Plan (05/02/2018 11:28 AM PRESCHOOL PROGRAM DIRECTOR): Mnagement per Placido Owens MD Assessment & Plan (08/28/2017 12:14 PM CDT): Recent exam per Dr. Owens. Resolved Problems Problem Noted Date Diagnosed Date Resolved Date Hypoventilation 10/04/2023 04/23/2024 Assessment & Plan (10/04/2023 11:49 AM CDT): Instructed on diaphragmatic breathing exercises. Myocardial infarction 06/28/20222023 Cataract 06/20/2022 04/19/2023 Localized swelling of right lower extremity 02/28/2022 04/19/2023 Assessment & Plan (02/28/2022 11:11 PM PRESCHOOL PROGRAM DIRECTOR): Suspect related to venous stasis. Ultrasound completed today without evidence of DVT. Discussed the importance of compression stockings, elevation. Continue with current medications, strict return precautions given. 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 He had mitral valve repair on 01/12/22 and has been doing well.No fever or chills. Consider routine labs at follow up end of next month. Assessment & Plan (01/24/2022 1:53 PM PRESCHOOL PROGRAM DIRECTOR): Patient completed six weeks of IV antibiotics around 12/16/21 for strep mutans bacterial endocarditis. He has done well with mitral valve repair 01/12/22. He denies fever or chills. White blood cell count at baseline (11.5K) at hospital discharge. Assessment & Plan (12/19/2021 4:33 PM CDT): Due to strep mutans. Patient has now completed 6 weeks of IV antibiotics and feels very well. Plans to follow-up with CT surgery to discuss potential surgical intervention on his mitral valve regurgitation. Patient reports that his shortness of breath is much improved. He is overall very pleased with how he is feeling. He would like contact information for Cardiothoracic surgery Assessment & Plan (11/18/2021 1:10 PM CDT): Streptococcal species growing on blood culture, severe mitral valve regurgitation with valvular vegetation. Continue with IV antibiotics, discussion with Cardiothoracic surgery regarding definitive management. Should patient continue to do well and blood cultures are negative plan for 4 weeks IV antibiotics and then hopefully mitral valve repair, more urgent surgery should patient's status change Streptococcal bacteremia 11/15/2021 Assessment & Plan (12/19/2021 4:32 PM CDT): Recurrent fevers, blood cultures positive for strep mutans. Mitral valve with evident vegetation. Patient has been treated with 6 weeks of IV antibiotics via PICC line in the left upper extremity. He will have his last dose on Sunday. He is doing very well, symptoms have all resolved. Will get repeat cultures with PICC line removal Assessment & Plan (11/20/2021 10:20 AM CDT): Blood cultures with growth of Streptococcus species, started on vancomycin had itching with infusion, switched to Rocephin on 16 November, Streptococcus mutans with ceftriaxone sensitivity. C/b vegetation: 11/17 PRABHAKAR: Flail mitral leaflet with probable vegetation. Severe mitral regurgitation Infectious Disease is following, appreciate their recommendations and care. Continues on CTX. Denies diarrhea 11/19 Blood cultures NGTD prelim 11/18 blood cultures NGTD prelim 11/16 blood cultures positive for Strep mutans PICC prior to discharge Dr. Carranza on 11/18, plan for likely surgery at end of IV abx course if possible (pending clinical condition) Myalgia 11/04/2021 04/13/2022 Assessment & Plan (11/04/2021 4:57 PM CDT): Diffuse myalgias, improved after hydration. Suspect viral etiology. COVID negative. Lab work unremarkable. Fever 11/04/2021 04/13/2022 Assessment & Plan (11/17/2021 1:24 PM CDT): Ongoing for approximately 2 weeks, blood cultures with growth of Streptococcus species. Continue with antibiotics, appreciate Infectious Disease recommendations and care. Assessment & Plan (11/04/2021 4:57 PM CDT): Uncertain etiology. Has not had fever during hospitalization. COVID negative x3. Suspect viral etiology especially in the setting of myalgias. Blood culture negative to date, no evidence of consolidation on x-ray, no abnormalities on urinalysis. No need for antibiotics at this time, continue with relative rest, increase hydration. Plan for discharge today. Other chest pain 11/03/2021 04/13/2022 Assessment & Plan (11/04/2021 4:57 PM CDT): Mild chest tightness, troponin negative. EKG unremarkable. Echocardiogram unchanged from baseline. Suspect musculoskeletal verses pulmonary inflammation from likely viral disease. COVID negative. Overall improved. Will plan for discharge today. Leg swelling 05/24/2021 04/13/2022 Assessment & Plan (05/24/2021 11:56 AM CDT): Due to medication non compliance. Patient reminded to start back on lasix 20mg every other day which will help with swelling. Continue low salt diet. Be careful with restaurant food which is very high in sodium. Elevate legs. Skin lesion of right ear 05/24/2021 Assessment & Plan (05/24/2021 11:57 AM CDT): Scaly lesion on R ear looks actinic but has been bothering patient, mild discomfort. Recommend he follow up with dermatology as planned in two weeks for removal of lesion. Allergic conjunctivitis of both eyes 05/24/2021 04/13/2022 Assessment & Plan (05/24/2021 11:58 AM CDT): Eyes are red and irritated after being outside and he sneezes. Recommend using ketotifen drops, 1 drop to both eyes twice daily as needed and space away from travatan drops. If the redness does not resolve with drops then to follow up with ophthalmology. Eyelid dermatitis, allergic/contact 05/24/2021 04/13/2022 Assessment & Plan (05/24/2021 12:02 PM CDT): Left outer cantus of eye is irritated and has some crusting after using travatan drop. Recommend using cotton ball on outer part of eye to prevent any of the travatan getting on the skin. Can use aquafor on skin to make a barrier as well. History of COVID-19 03/22/2021 04/19/19 Assessment & Plan (05/24/2021 11:51 AM CDT): COVID infection January 2021 with prolonged cough afterward. I saw him two months ago and recommended Symbicort but he did not tolerate it. The cough did resolve on its own and he's feeling well. Notable that chest x ray from end of Feb 2021 was not remarkable. Assessment & Plan (03/22/2021 12:47 PM PRESCHOOL PROGRAM DIRECTOR): Had COVID infection January 2021 with long lasting cough, change in taste buds (food tastes bitter). Recommend chest x ray given chronicity of cough. Initial films at urgent care did not demonstrate pneumonia. Recommend using the symbicort inhaler that he has at home, 2 puffs BID and rinse afterward until inhaler is gone. Shortness of breath 03/22/2021 09/21/19 Assessment & Plan (03/22/2021 12:49 PM PRESCHOOL PROGRAM DIRECTOR): Cough and shortness of breath for six weeks since patient had COVID infection. Recommend xray chest, BNP, and also taking course of Symbicort. Follow up in two months. Advice given about 2019 nove l coronavirus by telephone 09/10/2019 10/16/2019 Assessment & Plan (09/10/2019 9:42 AM CDT): The usual CDC precautions for minimizing coronavirus risk are appropriate. Frequently wash your hands with soap and water for at least 20 seconds. When soap and running water are unavailable, use an alcohol-based hand rub with at least 60% alcohol. Always wash hands that are visibly soiled. Avoid touching your eyes, nose, or mouth with unwashed hands. Avoid close contact with people who are sick and maintain social distancing. The CDC has recommended that ALL persons wear a fabric mask when out in public. Obviously this is a fast-moving issue and the CDC is providing regular updates as the course and extent of the epidemic is monitored. You may keep up to date at the CDC website: www.coronavirus.gov It is important that you adhere to the [id number] recommendations other than for essential outings. Feel free to reach out to us if you have additional questions after you review this information. 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 I have advised him that I anticipate most public events this winter will be cancelled, but that he should not take on public appearances in the setting of the ongoing COVID-19 pandemic. Medicare annual wellness visit, subsequent 05/02/2018 10/16/2019 Assessment & Plan (03/07/2019 11:52 AM PRESCHOOL PROGRAM DIRECTOR): Your Personalized Preventive Plan Thank you for taking time to come in and have your Annual Wellness Visit - it is important that we have the opportunity to spend additional time with you once a year to discuss not only your preventative care needs, but to review how your care is being managed overall. We hope that you found today s visit meaningful. Based on today s data - 03/07/19 HERE IS YOUR CURRENT HEALTH MAINTENANCE RECORD AND SCHEDULE Health Maintenance Topic Date Due Zoster Vaccines 02/07/1990 Influenza Vaccine (1) 10/27/2018 Regular Well Visit/Exam 05/03/2019 Fall Risk Assessment 09/04/2019 Depression Screening-PHQ 09/04/2019 DTaP/Tdap/Td Vaccine (2 - Tdap) 08/29/2027 Pneumococcal (PCV13 & PPSV23) 65+ yrs Completed HERE IS YOUR CURRENT IMMUNIZATION RECORD Immunization History Administered Date(s) Administered DTaP / IPV 08/28/2017 Influenza, Split 02/22/2012 Influenza, Trivalent, High Dose, Split, Preservative Free, Intramuscular 12/19/2016 Pneumococcal Conjugate PCV 13 09/30/2014 Pneumococcal Polysaccharide PPV23 02/21/2007, 12/19/2016 Td 02/22/2008 HERE IS YOUR CURRENT MEDICATION LIST Outpatient Encounter Medications as of 03/07/2019 Medication Sig Dispense Refill aspirin 81 mg enteric coated tablet Take 81 mg by mouth daily atorvastatin (LIPITOR) 10 mg tablet TAKE 1 TABLET(10 MG) BY MOUTH DAILY 90 tablet 3 benzonatate (TESSALON) 200 mg capsule Take 1 capsule (200 mg total) by mouth 3 (three) times a day as needed for cough 30 capsule 0 cholecalciferol (VITAMIN D3) 2,000 unit tablet 2 tablets (4,000 Units total) daily. doxycycline (VIBRAMYCIN) 100 mg capsule Take 1 tablet/capsule (100 mg total) by mouth 2 (two) times a day for 7 days 14 tablet/capsule 0 furosemide (LASIX) 20 mg tablet Take 1 tablet (20 mg total) by mouth every other day 90 tablet 3 metoprolol XL (TOPROL-XL) 50 mg 24 hr tablet TAKE 1 TABLET BY MOUTH DAILY 90 tablet 3 omega-3 fatty acids-fish oil 300-1,000 mg capsule Take by mouth POTASSIUM CHLORIDE ER 10 mEq CR tablet TAKE 1 TABLET(10 MEQ) BY MOUTH DAILY 90 tablet 3 sildenafil, antihypertensive, (REVATIO) 20 mg tablet 1-2 tablets as needed for erectile dysfunction 30 tablet 2 tamsulosin (FLOMAX) 0.4 mg extended release capsule TAKE 1 CAPSULE BY MOUTH EVERY DAY 90 capsule 3 travoprost (TRAVATAN Z) 0.004 % drops 0.004 %. 0 0 [DISCONTINUED] furosemide (LASIX) 20 mg tablet TAKE 1 TABLET(20 MG) BY MOUTH DAILY 90 tablet 3 varicella-zoster gE-AS01B, PF, (Shingrix, PF,) 50 mcg/0.5 mL vaccine Inject 0.5 mL into the muscle as instructed as directed 1 each 1 [DISCONTINUED] varicella-zoster [id number]-AS01B, PF, (SHINGRIX, PF,) 50 mcg/0.5 mL vaccine Inject 0.5 mL into the muscle as instructed as directed . (Patient not taking: Reported on 03/07/2019) 1 each 1 No facility-administered encounter medications on file as of 03/07/2019. HERE ARE YOUR MAJOR RISK FACTORS Hypertension and Other: hyperlipidemia THE FOLLOWING RECOMMENDATIONS WERE MADE TODAY I recommend that all patients follow a diet that is high in fruits and vegetables and low in processed foods such as sugar and foods that are made with white flour. I recommend using beneficial fats such as olive oil, nuts, seeds and berries and avoiding saturated animal fats. Please stay physically active to the extent that you are able. Orders Placed This Encounter Procedures Urinalysis reflex to microscopic and culture Urine, clean voided CBC with auto differential Comprehensive metabolic panel Lipid panel PSA screen Vitamin D 25 hydroxy TSH Ambulatory referral to Audiology No follow-ups on file. If you have not received communication about test results within 7 days of the test being performed,please contact the office. [facility] [address] [id number] Thank you for selecting our office for your health care needs. We are committed to providing excellent patient care. Please feel free to contact us with any questions or concerns. Assessment & Plan (05/02/2018 11:40 AM PRESCHOOL PROGRAM DIRECTOR): Your Personalized Preventive Plan Thank you for taking time to come in and have your Annual Wellness Visit - it is important that we have the opportunity to spend additional time with you once a year to discuss not only your preventative care needs, but to review how your care is being managed overall. We hope that you found today s visit meaningful. Based on today s data - 05/02/18 HERE IS YOUR CURRENT HEALTH MAINTENANCE RECORD AND SCHEDULE Health Maintenance Topic Date Due Zoster Vaccines 02/07/1990 Influenza Vaccine (1) 10/27/2017 Regular Well Visit/Exam 12/19/2017 Fall Risk Assessment 06/28/2018 Depression Screening-PHQ 06/28/2018 DTaP/Tdap/Td Vaccine (2 - Tdap) 08/29/2027 Pneumococcal (PCV13 & PPSV23) 65+ yrs Completed HERE IS YOUR CURRENT IMMUNIZATION RECORD Immunization History Administered Date(s) Administered DTaP / IPV 08/28/2017 Influenza, Split 02/22/2012 Influenza, Trivalent, High Dose, Split, Preservative Free, Intramuscular 12/19/2016 Pneumococcal Conjugate 13-Valent (PREVNAR) 09/30/2014 Pneumococcal Polysaccharide 23-Valent (PNEUMOVAX) 02/21/2007, 12/19/2016 Td 02/22/2008 HERE IS YOUR CURRENT MEDICATION LIST Outpatient Encounter Medications as of 05/02/2018 Medication Sig Dispense Refill albuterol HFA (PROAIR HFA) 90 mcg/actuation inhaler inhale 2 puff by inhalation route every 4 - 6 hours as needed 0 Inhaler 0 atorvastatin (LIPITOR) 10 mg tablet TAKE 1 TABLET(10 MG) BY MOUTH DAILY 90 tablet 3 cholecalciferol (VITAMIN D3) 2,000 unit tablet 2 tablets (4,000 Units total) daily. flaxseed oil 1,030 mg capsule take one tablet 0 0 fluticasone (FLONASE) 50 mcg/actuation nasal spray Administer 2 sprays into each nostril 2 (two) times a day. 16 g 0 furosemide (LASIX) 20 mg tablet Take 1 tablet (20 mg total) by mouth daily as needed . metoprolol XL (TOPROL-XL) 50 mg 24 hr tablet TAKE 1 TABLET BY MOUTH DAILY 90 tablet 3 omega-3 fatty acids-fish oil (OMEGA 3 FISH OIL) 684-1,200 mg capsule,delayed release(DR/EC) take 1 by oral route once 0 0 potassium chloride ER (K-TAB) 10 mEq CR tablet Take 1 tablet/capsule (10 mEq total) by mouth daily as needed (with furosemide) . sildenafil, antihypertensive, (REVATIO) 20 mg tablet 1-2 tablets as needed for erectile dysfunction 30 tablet 2 tamsulosin (FLOMAX) 0.4 mg extended release capsule TAKE 1 CAPSULE BY MOUTH EVERY DAY 90 capsule 3 travoprost (TRAVATAN Z) 0.004 % drops 0.004 %. 0 0 vitamin E (AQUASOL E) 400 unit capsule take one capsule daily 0 0 zinc (IG-TNUG-RZOTXVD) 15 mg tablet take 1/2 tablet daily every other day 0 0 [DISCONTINUED] furosemide (LASIX) 20 mg tablet Take 1 tablet (20 mg total) by mouth daily. 90 tablet 3 [DISCONTINUED] potassium chloride ER (K-TAB) 10 mEq CR tablet Take 1 tablet/capsule (10 mEq total) by mouth daily. 90 tablet/capsule 3 varicella-zoster gE-AS01B, PF, (SHINGRIX, PF,) 50 mcg/0.5 mL vaccine Inject 0.5 mL into the muscle as instructed as directed . 1 each 1 [DISCONTINUED] ibuprofen (ADVIL,MOTRIN) 600 mg tablet Take 1 tablet (600 mg total) by mouth 3 (three) times a day. Take with food. (Patient not taking: Reported on 05/02/2018.) 30 tablet 0 [DISCONTINUED] varicella-zoster gE-AS01B, PF, (SHINGRIX, PF,) 50 mcg/0.5 mL vaccine Inject 0.5 mL into the muscle as instructed as directed. (Patient not taking: Reported on 05/02/2018.) 1 each 1 No facility-administered encounter medications on file as of 05/02/2018. HERE ARE YOUR MAJOR RISK FACTORS Hypertension and Other: hyperlipidemia THE FOLLOWING RECOMMENDATIONS WERE MADE TODAY I recommend that all patients follow a diet that is high in fruits and vegetables and low in processed foods such as sugar and foods that are made with white flour. I recommend using beneficial fats such as olive oil, nuts, seeds and berries and avoiding saturated animal fats. Please stay physically active to the extent that you are able. Orders Placed This Encounter Procedures Urinalysis reflex to microscopic and culture Urine, clean voided CBC with auto differential Comprehensive metabolic panel PSA screen Ambulatory referral to Urology No follow-ups on file. If you have not received communication about test results within 7 days of the test being performed,please contact the office. Adult BMI 26.0-26.9 kg/sq m 08/28/2017 09/10/2020 Assessment & Plan (03/11/2020 6:23 PM PRESCHOOL PROGRAM DIRECTOR): Discussed diet and exercise, the importance of gradual and progressive weight loss. Assessment & Plan (10/16/2019 1:08 PM CDT): Discussed diet and exercise, the importance of gradual and progressive weight loss. Assessment & Plan (03/07/2019 11:31 AM PRESCHOOL PROGRAM DIRECTOR): An optimal BMI (body mass index) is between 20 and 25. Encourage weight loss. Each pound of weight lost unloads 3-4 pounds per square inch pressure from weight bearing joints. Diet and exercise are the keys to weight management. Assessment & Plan (09/03/2018 12:14 PM CDT): An optimal BMI (body mass index) is between 20 and 25. Encourage weight loss. Each pound of weight lost unloads 3-4 pounds per square inch pressure from weight bearing joints. Diet and exercise are the keys to weight management. Assessment & Plan (05/02/2018 11:16 AM PRESCHOOL PROGRAM DIRECTOR): BMI satisfactory. A healthy diet and routine exercise regimen are mukherjee to weight management. Assessment & Plan (08/28/2017 12:14 PM CDT): An optimal BMI (body mass index) is between 20 and 25. Encourage weight loss. Each pound of weight lost unloads 3-4 pounds per square inch pressure from weight bearing joints. Diet and exercise are the keys to weight management. Need for hepatitis C screening test 08/28/2017 09/10/2020 Overview (05/02/2018): Images from the original note were not included. Other specified glaucoma 08/28/2017 Benign hypertensive heart di sease without heart failure 02/11/2015 04/13/2022 Overview (07/02/2020): 02/09 CAD/Cath - minimal CAD - Hyperdynamic LV function with intracavitary gradient - increased EDP 03/14 Echo - Mod LVH, normal EF - 65% - MV leaflet thickening with mod MR; mild-mod TR - gradient of 40 with valsalva in aortic outflow tract with SILVINO Sleep-wake schedule disorder , delayed phase type 09/10/2014 04/23/2017 Overview (06/02/2016): Delayed sleep phase syndrome Acute serous otitis media 07/12/2013 Overview (06/02/2016): Left acute serous otitis media Immunizations Immunization Administration Dates Next Due DTaP / IPV 08/28/2017 Influenza, Quadrivalent, Hig h Dose, Preservative Free, Intrr 03/09/2020 Influenza, Split 02/22/2012 Influenza, Trivalent, High D ose, Split, Preservative Free, Intramuscular 12/19/2016 Influenza, Unspecified 04/23/2024(Deferr ed: Patient Refused),04/19/2023(Deferred: Patient Refused),12/27/2021,12/14/2021(Deferre d: Patient Refused),11/26/2020(Deferred: Patient Refused),11/27/2019(Deferred: Patient Refused),03/07/2019(Deferred: Patient Refused) Pneumococcal Conjugate PCV 13 09/30/2014 Pneumococcal Conjugate Pcv20 12/14/2021 Pneumococcal Polysaccharide PPV23 12/19/2016, Td, adsorbed 02/22/2008 Social History Tobacco Use Types Packs/Day Years Used Date Smoking Tobacco: Never Smokeless Tobacco: Never Alcohol Use Standard Drinks/Week Comments Not Currently 0 (1 standard drink = 0.6 oz pur e alcohol) occassional Social Connection and Isolation Panel [NHANES] A nswer Date Recorded Frequency of Communication with Friends and Fami ly Not on file 01/23/2022 Frequency of Social Gatherings with Friends and Family Not on file 01/23/2022 Attends Hoahaoism Services Not on file 01/23 Active Member of Clubs or Organizations Not on f ile 01/23/2022 Attends Club or Organization Meetings Not on magui e 01/23/2022 Are you , , di vorced, , never , or living with a partner? 01/23/2022 AUDIT-C Answer Date Recorded Q1: How often do you have a drink containing alc ohol? Monthly or less 06/29/2022 Q2: How many drinks containi ng alcohol do you have on a typical day when you are drinking? 1 or 2 06/29/2022 Q3: How often do you have si x or more drinks on one occasion? Never 06/29/2022 Overall Financial Resource Strain (CARDIA) Answe r Date Recorded How hard is it for you to pa y for the very basics like food, housing, medical care, and heating? Not hard at all 01/23/2022 PHQ-2 Answer Date Recorded PHQ-2 Total Score (If total score is 3 or more points, staff should administer the PHQ-9) 0 04/22/2024 Hunger Vital Sign Answer Date Recorded Within the past 12 months, y ou worried that your food would run out before you got the money to buy more. Never true 01/14/20 22 Within the past 12 months, t he food you bought just didn't last and you didn't have money to get more. Never true 01/13/2022 PRAPARE - Transportation Answer Date Re corded In the past 12 months, has l ack of transportation kept you from medical appointments or from getting medications? No 12/28 In the past 12 months, has l ack of transportation kept you from meetings, work, or from getting things needed for daily living? No 01/23/2022 Housing Stability Vital Sign Answer Fernando e Recorded In the last 12 months, was t here a time when you were not able to pay the mortgage or rent on time? No 01/23/2022 In the last 12 months, how many places have you lived? 1 01/23/2022 In the last 12 months, was t here a time when you did not have a steady place to sleep or slept in a retirement (including now)? No 01/23/2022 Sex and Gender Information Value Date Recorded Sex Assigned at Not on file Legal Sex Male 1:49 AM PRESCHOOL PROGRAM DIRECTOR Gender Identity Not on file Sexual Orientation Not on file Occupation Industry Job Start Date Job End Date Retired Not on file Not on file Not on file Last Filed Vital Signs Vital Sign Reading Time Taken Comments Blood Pressure 110/62 04/23/2024 12:52 PM PRESCHOOL PROGRAM DIRECTOR Pulse 76 04/23/2024 12:52 PM PRESCHOOL PROGRAM DIRECTOR Temperature 36.7 C (98 F) 11/15/2023 3:34 PM CDT Respiratory Rate 16 11/15/2023 3:34 PM CDT Oxygen Saturation 92% 04/23/2024 12:52 PM PRESCHOOL PROGRAM DIRECTOR Inhaled Oxygen Concentration - - Weight 86.3 kg (190 lb 4.8 oz) 04/23/2024 12:52 PM PRESCHOOL PROGRAM DIRECTOR Height 172.7 cm (5' 8 ) 04/23/2024 12:52 PM PRESCHOOL PROGRAM DIRECTOR Body Mass Index 28.94 04/23/2024 12:52 PM PRESCHOOL PROGRAM DIRECTOR Plan of Treatment Not on file Medical Devices Implanted Type Area Supervisory Cbp Officer Device Identifier Shelf Expiration Date Model / Serial / Lot [employer] V[employer] Device Clsr Perclose Prostyle Sut-Mediatd Closure-Repair Sys 30923-49 - S0 - [id number] Implanted:Qty: 1 on 11/17/2021 by Ruddy Perkins MD at [facility] Other - see comments Right: Femoral [employer] 07/27/2023 [id number] / 0 / [id number] Description:Right femoral ar bernard [employer] Estelle-Ed[place] rds Physio Ii 32mm Diaz Sew Mitral Ring [id number] - [id number] - [id number] Implanted:Qty: 1 on 01/12/2022 by Willam Carranza MD at [facility] N/A: Mitral Valve [employer] 08/09/2026 [id number] / [id number] / Procedures Procedure Name Priority Date/Time Associated Diagnosis Comments EGFR Routine 04/23/2024 1:53 PM PRESCHOOL PROGRAM DIRECTOR Medicare annual wellness visit, subsequent DIFFERENTIAL AUTO Routine 04/23/2024 1:5 3 PM PRESCHOOL PROGRAM DIRECTOR Medicare annual wellness visit, subsequent HEMOGLOBIN A1C Routine 04/23/2024 1:53 PM PRESCHOOL PROGRAM DIRECTOR Medicare annual wellness visit, subsequent LIPID PANEL Routine 04/23/2024 1:53 PM PRESCHOOL PROGRAM DIRECTOR Medicare annual wellness visit, subsequent THYROID FUNCTION CASCADE Routine 04/23/2024 1:53 PM PRESCHOOL PROGRAM DIRECTOR Medicare annual wellness visit, subsequent PSA SCREEN Routine 04/23/2024 1:53 PM PRESCHOOL PROGRAM DIRECTOR Screening for prostate cancer CBC WITH AUTO DIFFERENTIAL Routine 04/23/2024 1:53 PM PRESCHOOL PROGRAM DIRECTOR Medicare annual wellness visit, subsequent COMPREHENSIVE METABOLIC PANEL Routine 04/23/2024 1:53 PM PRESCHOOL PROGRAM DIRECTOR Medicare annual wellness visit, subsequent HEPATITIS B SURFACE ANTIGEN Routine 04/23/2024 1:53 PM PRESCHOOL PROGRAM DIRECTOR Need for hepatitis B screening test HEPATITIS B CORE ANTIBODY, TOTAL Routine 04/23/2024 1:53 PM PRESCHOOL PROGRAM DIRECTOR Need for hepatitis B screening test HEPATITIS B SURFACE ANTIBODY (IMMUNE STATUS) Routine 04/23/2024 1:53 PM PRESCHOOL PROGRAM DIRECTOR Need for hepatitis B screening test from Last 3 Months Results * eGFR (04/23/2024 1:53 PM PRESCHOOL PROGRAM DIRECTOR) eGFR 76 >=60 mL/min/1. 73 m2 Comment: Interpretive Data Reference Interval Normal >/= 90 mL/min/1.73m2 Mildly decreased* 60 - 89 mL/min/1.73m2 Mildly to moderately decreased 45 - 59 mL/min/1.73m2 Moderately to severely decreased 30 - 44 mL/min/1.73m2 Severely decreased 15 - 29 mL/min/1.73m2 Kidney Failure < 15 mL/min/1.73m2 *Relative to young adult level Estimated glomerular filtration rate is determined by the 2020 CKD-EPI equation recommended by the National Kidney Foundation (A Unifying Approach to GFR Estimation: Recommendations of the NKF-ASK Task Force on Reassessing the Inclusion of Race in Diagnosing Kidney Disease, JASN 202). The CKD-EPI equation should not be used for patients with unstable renal function and has not been validated in children and those over 70. Current interpretive data was last reviewed 2020. Blood 04/23/2024 1:53 PM PRESCHOOL PROGRAM DIRECTOR 04/23/2024 7:46 PM PRESCHOOL PROGRAM DIRECTOR Selam Gamez [facility] LAB BLOOD ORDERABLES Final R esult [facility] [address] Department [place] [address] * Differential, auto (04/23/2024 1:53 PM PRESCHOOL PROGRAM DIRECTOR) Neutrophil abs 5.6 1.5 - 6.5 K/cumm Imm gran abs 0.0 0.0 - 0.1 K/cumm [facility] Lymphocyte abs 2.2 0.8 - 3.3 K/cumm [facility] Monocyte abs 0.6 0.2 - 0.8 K/cumm [facility] Eosinophil abs 0.2 0.0 - 0.5 K/cumm [facility] Basophil abs 0.0 0.0 - 0.1 K/cumm [facility] Neutrophil pct 64.3 % [facility] Comment: Interpretive Data Percent cell count reference ranges are not reported, since discordance with absolute values may lead to misinterpretation of CBC data. Current Interpretive Data was last revised on 2017. Imm gran pct 0.2 % [facility] Comment: Interpretive Data Percent cell count reference ranges are not reported, since discordance with absolute values may lead to misinterpretation of CBC data. Current Interpretive Data was last revised on 2017. Lymphocyte pct 25.8 % [facility] Comment: Interpretive Data Percent cell count reference ranges are not reported, since discordance with absolute values may lead to misinterpretation of CBC data. Current Interpretive Data was last revised on 2017. Monocyte pct 6.7 % [facility] Comment: Interpretive Data Percent cell count reference ranges are not reported, since discordance with absolute values may lead to misinterpretation of CBC data. Current Interpretive Data was last revised on 2017. Eosinophil pct 2.5 % [facility] Comment: Interpretive Data Percent cell count reference ranges are not reported, since discordance with absolute values may lead to misinterpretation of CBC data. Current Interpretive Data was last revised on 2017. Basophil pct 0.5 % [facility] Comment: Interpretive Data Percent cell count reference ranges are not reported, since discordance with absolute values may lead to misinterpretation of CBC data. Current Interpretive Data was last revised on 2017. Blood 04/23/2024 1:53 PM PRESCHOOL PROGRAM DIRECTOR 04/23/2024 7:44 PM PRESCHOOL PROGRAM DIRECTOR Selam Gamez [facility] LAB BLOOD ORDERABLES Final R esult Performing Organization Address City/[facility] Co de Phone Number [facility] [address] [employer] [place], [place] [id number] * Thyroid Function Morrison (04/23/2024 1:53 PM PRESCHOOL PROGRAM DIRECTOR) TSH 0.35 0.30 - 4.20 mcIUnit/mL Blood 04/23/2024 1:53 PM PRESCHOOL PROGRAM DIRECTOR 04/23/2024 7:46 PM PRESCHOOL PROGRAM DIRECTOR Result [facility] Selam Gamez [facility] LAB BLOOD ORDERABLES Final R ult Performing Organization Address City/[facility] Co de Phone Number [facility] [address] [facility] [place] [address] * PSA screen (04/23/2024 1:53 PM PRESCHOOL PROGRAM DIRECTOR) PSA-Total 0.33 <=6.20 ng/mL Comment: Interpretive Data AGE SEX REFERENCE INTERVAL 0 minutes-150 years Female None 0 minutes-49 years Male None 50-59 years Male 0-3.90 60-69 years Male 0-5.40 70-79 years Male 0-6.20 80-150 years Male 0-6.20 The Rodrick PSA Total assay procedure was used. Results from different manufacturers or methods may not be comparable. Serial testing should be performed using the same method. Current interpretive data last revised 21. Blood 04/23/2024 1:53 PM PRESCHOOL PROGRAM DIRECTOR 04/23/2024 7:46 PM PRESCHOOL PROGRAM DIRECTOR Result [facility] Selam Gamez [facility] LAB BLOOD ORDERABLES Final R esult Performing Organization Address City/[facility]/ZIP Co de Phone Number [facility] [address] [employer] [place] [address] * (ABNORMAL) CBC with auto differential (04/23/2024 1:53 PM PRESCHOOL PROGRAM DIRECTOR) WBC 8.7 3.8 - 9.9 K/cumm Hgb 15.0 13.0 - 17.5 g/dL [facility] Hct 46.6 38.9 - 50.3 % [facility] Plt 191 150 - 400 K/cumm [facility] MPV 11.6 9.1 - 12.3 fL [facility] RBC 5.00 4.30 - 5.80 M/cumm [facility] MCV 93.2 81.3 - 96.4 fL [facility] MCH 30.0 27.1 - 33.3 pg [facility] MCHC 32.2(L) 32.3 - 35.7 g/dL [facility] RDW CV 15.4(H) 11.1 - 14.9 % [facility] RDW SD 52.6(H) 35.7 - 48.1 fL [facility] NRBC abs 0.00 0.00 - 0.01 K/cumm [facility] Blood 04/23/2024 1:53 PM PRESCHOOL PROGRAM DIRECTOR 04/23/2024 7:44 PM PRESCHOOL PROGRAM DIRECTOR Result [facility] Selam Gamez [facility] LAB BLOOD ORDERABLES Final R esult Performing Organization Address City/[facility]/ZIP Co de Phone Number [facility] [address] Department [employer] [place], [place] [id number] * Hepatitis B core antibody, total Blood (04/23/2024 1:53 PM PRESCHOOL PROGRAM DIRECTOR) Hep B core IgG/IgM Nonreactive Nonreactive Comment:Testing performed by : [facility], [address] [place]., [address] Blood 04/23/2024 1:53 PM PRESCHOOL PROGRAM DIRECTOR 04/23/2024 9:47 PM PRESCHOOL PROGRAM DIRECTOR Selam Gamez DNP LAB MICROBIOLOGY - GENERAL O RDERABLES Final Result Performing Organization Address City/[facility]/ZIP Co de Phone Number [facility] [address] Department [employer] [place], [place] [id number] * Hepatitis B surface antibody (immune status) Blood (04/23/2024 1:53 PM PRESCHOOL PROGRAM DIRECTOR) Pathologist [facility] HBsAb (immune status) Nonreactive Comment: This result is consistent with a lack of immunity to Hepatitis B Virus when used in the setting of routine screening. Current interpretative data was last revised on 21 Testing performed by: [facility], [address] [place]., [address] Blood 04/23/2024 1:53 PM PRESCHOOL PROGRAM DIRECTOR 04/23/2024 9:47 PM PRESCHOOL PROGRAM DIRECTOR Selam Gamez DNP LAB MICROBIOLOGY - GENERAL O RDERABLES Final Result Performing Organization Address City/[facility]/ZIP Co de Phone Number [facility] [address] Department [place] [address] * Hepatitis B Surface Antigen Blood (04/23/2024 1:53 PM PRESCHOOL PROGRAM DIRECTOR) Pathologist [facility] HepBsAg Nonreactive Nonreactive Blood 04/23/2024 1:53 PM PRESCHOOL PROGRAM DIRECTOR 04/23/2024 7:42 PM PRESCHOOL PROGRAM DIRECTOR Selam Gamez DNP LAB MICROBIOLOGY - GENERAL O RDERABLES Final Result [facility] [address] Department [place] [address] * Hemoglobin A1c (04/23/2024 1:53 PM PRESCHOOL PROGRAM DIRECTOR) Pathologist [facility] Hgb A1C 5.0 4.0 - 5.6 % Estimated Average Glucose 97 mg/dL [facility] Comment: The ADA recommends reporting an estimated Average Glucose (eAG) with all Hemoglobin A1c results using the equation derived from a study of 507 normal and diabetic adults. Minority populations were underrepresented and children were not included. (Diabetes Care 31:8148-4864, 2008). The eAG is not equivalent to a fasting glucose. Blood 04/23/2024 1:53 PM PRESCHOOL PROGRAM DIRECTOR 04/23/2024 7:44 PM PRESCHOOL PROGRAM DIRECTOR us Selam Gamez [facility] LAB BLOOD ORDERABLES Final R esult [facility] [address] Department [place] [address] * Lipid panel (04/23/2024 1:53 PM PRESCHOOL PROGRAM DIRECTOR) [facility] Cholesterol 106 30 - 199 mg/dL Comment: Interpretive Data Ages < or = 19 years Acceptable: <170 mg/dL Borderline high: 170-199 mg/dL High: >or= 200 mg/dL Ages > or = 20 years Desirable: <200 mg/dL Borderline high: 200-239 mg/dL High: >or= 240 mg/dL Literature References: 1. Expert Panel on Integrated Guidelines for Cardiovascular Health and Risk Reduction in Children and Adolescents. Pediatrics 2011;128:S213 2. NCEP Expert Panel. Circulation 2004;110:227 Current Interpretive Data was last revised on 2017. Triglycerides 61 <=149 mg/dL [facility] Comment: Interpretive Data Ages < or = 9 years Acceptable: <75 mg/dL Borderline high: 75-99 mg/dL High: >or= 100 mg/dL Ages 10 to 20 years Acceptable: <90 mg/dL Borderline high: 90-129 mg/dL High: >or= 130 mg/dL Ages > or = 20 years Desirable: <150 mg/dL Borderline high: 150-199 mg/dL High: 200-499 mg/dL Very high: >or= 499 mg/dL Literature References: 1. Expert Panel on Integrated Guidelines for Cardiovascular Health and Risk Reduction in Children and Adolescents. Pediatrics 2011;128:S213 2. NCEP Expert Panel. Circulation 2004;110:227 Current Interpretive Data was last revised on 2017. HDL 43 >=40 mg/dL [facility] Comment: Interpretive Data Ages < or = 19 years Acceptable: >45 mg/dL Borderline low: 40-45 mg/dL Low: <40 mg/dL Ages > or = 20 years Desirable: >or= 60 mg/dL Low: <40 mg/dL Literature References: 1. Expert Panel on Integrated Guidelines for Cardiovascular Health and Risk Reduction in Children and Adolescents. Pediatrics 2011;128:S213 2. NCEP Expert Panel. Circulation 2004;110:227 Current Interpretive Data was last revised on 2017. LDL, calculated 49 <=129 mg/dL [facility] Comment: Interpretive Data Ages < or = 19 years Acceptable: <110 mg/dL Borderline high: 110-129 mg/dL High: >or= 130 mg/dL Ages > or = 20 years Optimal: <100 mg/dL Near optimal: 100-129 mg/dL Borderline high: 130-159 mg/dL High: >160 mg/dL Calculated using the Ashish LDL-C estimating equation. This equation was implemented on 2023. Prior to this date LDL-C was estimated using the Friedewald equation. Literature References: 1. Expert Panel on Integrated Guidelines for Cardiovascular Health and Risk Reduction in Children and Adolescents. Pediatrics 2011;128:S213 2. NCEP Expert Panel. Circulation 2004;110:227 3. Ashish Banks et al. ARIAS Cardiol. 2020 June 26;5(5):540-548. doi: 10.1001/[email or web address].2020.0013 Current Interpretive Data was last revised on 2023. Non-HDL Cholesterol 63 mg/dL [facility] Comment: Interpretive Data Ages < or = 19 years Acceptable: <120 mg/dL Borderline high: 120-144 mg/dL High: >145 mg/dL Ages > or = 20 years When triglycerides are >200 mg/dL, Non-HDL cholesterol is a secondary target of therapy with treatment goals that are 30 mg/dL greater than the LDL cholesterol target. Literature References: 1. Expert Panel on Integrated Guidelines for Cardiovascular Health and Risk Reduction in Children and Adolescents. Pediatrics 2011;128:S213 2. NCEP Expert Panel. Circulation 2004;110:227 Current Interpretive Data was last revised on 2017. Chol/HDL ratio 2 [facility] Blood 04/23/2024 1:53 PM PRESCHOOL PROGRAM DIRECTOR 04/23/2024 7:46 PM PRESCHOOL PROGRAM DIRECTOR Selam Gamez DNP LAB BLOOD ORDERABLES Final R esult [facility] [address] Department [place] [address] * Comprehensive metabolic panel (04/23/2024 1:53 PM PRESCHOOL PROGRAM DIRECTOR) Sodium 140 135 - 145 mmol/L Potassium, pl 4.7 3.3 - 4.9 mmol/L [facility] Chloride 104 97 - 110 mmol/L [facility] CO2 26 22 - 32 mmol/L [facility] Anion gap 10 2 - 15 mmol/L [facility] BUN 15 6 - 25 mg/dL [facility] Creatinine 0.98 0.80 - 1.30 mg/dL [facility] Glucose 92 70 - 199 mg/dL [facility] Comment: Interpretive Data Fasting glucose >/= 126 mg/dl is diagnostic for diabetes. Fasting is defined as no caloric intake for at least 8 hours. Fasting glucose between 100 mg/dl to 125 mg/dl is diagnostic of prediabetes. In a patient with classic symptoms of hyperglycemia or hyperglycemic crisis, a random glucose >/= 200 mg/dl is diagnostic for diabetes. In the absence of unequivocal hyperglycemia, results should be confirmed by repeat testing. The classification and Diagnosis of Diabetes Diabetes Care 2021; 46: S19-S40. Current interpretive data was last revised 2022. Calcium 9.2 8.5 - 10.3 mg/dL [facility] Bilirubin, total 0.8 0.1 - 1.2 mg/dL [facility] Protein, pl 6.8 6.5 - 8.5 g/dL [facility] Albumin 4.3 3.5 - 5.0 g/dL [facility] Alk phos 60 40 - 130 Units/L [facility] ALT 34 7 - 55 Units/L [facility] AST 32 10 - 50 Units/L [facility] Blood 04/23/2024 1:53 PM PRESCHOOL PROGRAM DIRECTOR 04/23/2024 7:46 PM PRESCHOOL PROGRAM DIRECTOR Selam Gamez [facility] LAB BLOOD ORDERABLES Final R esult [facility] [address] Department of Laboratories [place] [id number] from Last 3 Months [place] [phone] [facility] [address] [facility] [place] [address] Advance Directives For more information, please contact: [phone] * Full Code (Latest Code Status on File) Date Activated Date Inactivated Comments 01/12/2022 1:07 PM 01/20/2022 8:54 PM * Full Code Date Activated Date Inactivated Comments 11/15/2021 5:10 AM 11/22/2021 6:43 PM * Full Code Date Activated Date Inactivated Comments 11/03/2021 6:24 PM 11/04/2021 9:47 PM Care Teams Pole Classifier Relationship Specialty Start Date End Date DeniceRuddy price JoniDO [address] [place] [address] PCP - General Family Medicine 10/16/19 Vonnie Holly, PT Physical Therapist Physical Therapy 09/11/17 Galina Landry, HOME DEMONSTRATION AGENT Intermediate Frame Tender Physical Therapy 09/17/17 Rina Beasley, HOME DEMONSTRATION AGENT Intermediate Frame Tender Physical Therapy 09/24/17 Alla Bruce, PT Physical Therapist Physical Therapy 10/04/17 Kishan Romero MD [address] [place] [address] Referring Physician Orthopedic Surgery 11/05/17 Willam Suarez MD [address] [facility] [address] [place] [address] Direct Service Worker Cardiology 06/29/22
--- OUTSIDE RECORDS SUMMARY | 2024-05-27 14:07 | XMS_ITS | Clinical Summary ---
Author Organization [facility] Address [address] [place] [address] Care Team Providers Care Tobacco Hanger Name Role Phone Vonnie Holly PT Unavailable Unavailable Galina Landry PROCESS SAFETY MANAGEMENT ENGINEER Unavailable Unavailab Rina Burleson PTA Unavailable Unavailable Alla Bruce PT Unavailable Unavailable Kishan Romero MD Unavailable [phone] Ruddy Galdamez DO Primary Care Provider [phone] Willam Suarez MD Unavailable [phone] Allergies Active Allergy Reactions Criticality Noted Date [...] therapy and follow-up. The patient has a [id number] score of 4 (annualized risk of stroke 4%). I have therefore recommended continued anticoagulation for thromboprophylaxis. Assessment & Plan (01/26/2023 1:17 PM [employer] AC[employer]ITION[employer] BANKER): No recent atrial fibrillation has been detected. [...] 01/24/2022 Assessment & Plan (02/01/2022 4:43 PM [employer]ITION[employer] BANKER): Mitral valve repair 01/[address] Carranza. Some LV dysfunction after surgery. Discharged from hospital 01/20. He lost 16 lbs from 01/20 to 01/24. Weight is now stable. His blood pressure has been a little on the soft side. Dr. Krause his cigarette package examiner reduced amlodipine from 5mg to 2.5mg today. He continues on metoprolol tartrate 50mg twice daily. Plans on having echocardiogram this Sunday and seeing Dr. Carranza next Sunday, then start cardiac rehab. Patient to wait on starting exercise regimen as he needs monitoring which will be provided at cardiac rehab. Continues on eliquis for anticoagulation. Assessment & Plan (01/24/2022 1:57 PM [employer] BANKER): Mitral valve repair 01/12/[address] Carranza. [...] 03/22/2021 Assessment & Plan (02/01/2022 4:33 PM [employer] AC[employer]ITION[employer] BANKER): BMI Follow-up includes: nutrition counseling and education provided. Assessment & Plan (01/24/2022 1:45 PM [employer] AC[employer] BANKER): BMI Follow-up includes: nutrition counseling and exercise counseling. Assessment & Plan (05/24/2021 11:49 AM CDT): BMI Follow-up includes: nutrition counseling and exercise counseling. Assessment & Plan (03/22/2021 12:46 PM [employer] BANKER): BMI Follow-up includes: nutrition counseling and exercise counseling. Anticoagulation management encounter 03/22/2021 Assessment & Plan (01/26/2023 1:18 PM [employer] BANKER): The patient has a [id number] score of 4 (annualized risk of stroke 4%). I have therefore recommended continued anticoagulation. He has a history of hematuria. If this recurs, percutaneous left atrial appendage occlusion device placement can be considered. Assessment & Plan (07/10/2022 1:22 PM CDT): The patient is presently anticoagulated for thromboprophylaxis with rivaroxaban. Assessment & Plan (03/22/2021 12:53 PM [employer] ACQU[employer]ITION[employer] BANKER): 81 yr old presents for annual physical. [...] ECG. Assessment & Plan (01/26/2023 1:19 PM [employer] AC[employer] BANKER): Doing well with beta-carlos therapy. No syncope [...] followed by Dr. Krause who is his cigarette package examiner. Patient's blood pressure remains very well controlled. He remains asymptomatic. Continue with current plan Assessment & Plan (03/11/2020 6:25 PM [employer] BANKER): Known diagnosis, doing well. Asymptomatic. Followed by Cardiology (Dr. Krause). Continue with current therapy, continue to control blood pressure, follow up with Cardiology as scheduled. Strict return precautions given. Umbilical hernia without obstruction and without gangrene 09/10/2019 Assessment & Plan (03/22/2021 12:45 PM [employer] AC[employer] BANKER): Mild reducible hernia on exam, not tender. [...] 05/02/2018 Assessment & Plan (01/24/2022 1:51 PM [employer] AC[employer]ISITION[employer] BANKER): Continue atorvastatin 10mg daily. Assessment & Plan [...] visit Assessment & Plan (03/11/2020 6:25 PM [employer] AC[employer] BANKER): On statin and tolerating well, continue with [...] orders. Assessment & Plan (03/07/2019 11:34 AM [employer] ACQUISITION[employer] BANKER): Lab Results Component Value Date CHOL 117 [...] 10/04/2015 Assessment & Plan (05/02/2018 11:29 AM [employer] AC[employer]ISITION[employer] BANKER): Lab Results Component Value Date CHOL 117 [...] 08/28/2017 Assessment & Plan (03/07/2019 11:51 AM [employer] BANKER): Stable. Assessment & Plan (05/02/2018 11:30 AM [employer] AC[employer]ISITION[employer] BANKER): Recent steroid injection per Orthopedics with good outcome. Assessment & Plan (08/28/2017 11:56 AM CDT): Recent increased pain L knee. History of knee injury . X-ray ordered. 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 Assessment & Plan (03/11/2020 6:23 PM [employer] AC[employer]IS[employer] BANKER): Known diagnosis, does well with the use of as needed sildenafil, continue with current therapy. Assessment & Plan (10/16/2019 1:09 PM CDT): Known diagnosis, followed by Urology. Failed treatment with phosphodiesterase inhibitors. He is working with his insurance to obtain a pump. Follow-up with at urology as scheduled Assessment & Plan (09/10/2019 9:42 AM CDT): Sildenafil refilled. Assessment & Plan (03/07/2019 11:35 AM [employer] AC[employer] BANKER): Continue sildenafil as needed. Assessment & Plan (09/03/2018 12:08 PM CDT): Satisfactory response to sildenafil. Discussed lower-cost availability at [facility]. Assessment & Plan (05/02/2018 11:38 AM [employer] ACQUISITIONS BANKER): Continue sildenafil as needed. Assessment & Plan (08/28/2017 12:07 PM CDT): Trial generic sildenafil 20-40 mg daily as needed. Primary hypertension 05/04/2016 Overview (10/23/2016): HTN (hypertension) Assessment & Plan (02/01/2022 4:45 PM [employer]IS[employer] BANKER): BP soft, 104/62 today. Amlodipine reduced today by cigarette package examiner from 5mg to 2.5mg. Home health is monitoring his blood pressure and will let us know if too low. Has follow up with surgeon next week. Assessment & Plan (01/24/2022 1:51 PM [employer] BANKER): BP on soft side today. Monitor closely. [...] arm. Assessment & Plan (03/22/2021 12:43 PM [employer] ACQUISITIONS BANKER): Blood pressure is hypotensive, recommend reducing metoprolol from 50mg to 25mg daily. Today BP at 100/60. Follow up in two months for repeat BP check. Assessment & Plan (09/12/2020 4:15 PM CDT): Continues to be very well controlled on metoprolol at current dose. Will continue with current therapy, follow-up in 6 months, sooner if questions or concerns Assessment & Plan (03/11/2020 6:23 PM [employer] ACQUISITION[employer] BANKER): Well controlled in clinic today, continue with [...] unchanged. Assessment & Plan (03/07/2019 11:35 AM MERG[employer] AND ACQUISITIONS BANKER): Vitals BP 118/74 (BP Location: Left arm, [...] PND. Assessment & Plan (05/02/2018 11:38 AM [employer] ACQUISITION[employer] BANKER): Vitals BP 118/68 (BP Location: Right arm, [...] is planning on establishing care with a cigarette package examiner in the [facility]. We may consider stress testing [...] today Assessment & Plan (03/22/2021 12:57 PM [employer] AND ACQUISITIONS BANKER): Patient follows routinely with cardiology. Assessment & [...] Krause). Assessment & Plan (05/02/2018 11:38 AM [employer] AND ACQUISITIONS BANKER): Monitored by Cardiology (Dr. Virgilio Krause) Hypertensive [...] SILVINO Assessment & Plan (03/22/2021 12:43 PM [employer] ACQUISITIONS BANKER): Follows with Dr. Krause of cardiology. Abnormal cardiovascular stress test 02/04/2015 Overview (07/02/2020): Overview: 02/09 CAD/Cath - minimal CAD - Hyperdynamic LV function with intracavitary gradient - increased EDP 02/09 CAD/Cath - minimal CAD - Hyperdynamic LV function with intracavitary gradient - increased EDP MVP (mitral valve prolapse) 02/04/2015 Overview (07/02/2020): Overview: 02/09 Echo ([facility]) - normal LV function - [...] SILVINO; no gradient at rest 02/09 Echo ([facility]) - normal LV function - [...] rest Assessment & Plan (03/22/2021 12:56 PM [employer] ACQUISITIONS BANKER): Echo 11/2020 demonstrated EF of 70%, grade 2 LV dysfunction with increased left atrial pressure. Moderate LV hypertrophy, slightly worse at septum, mild mitral regurg. Follows with cardiology. Assessment & Plan (03/11/2020 6:26 PM [employer] ACQUISITIONS BANKER): Known diagnosis, followed by Cardiology. No shortness of breath or exercise intolerance. Continue with current therapy. Strict return precautions given. Assessment & Plan (10/16/2019 1:10 PM CDT): Followed by Cardiology, has been stable on recent echo Assessment & Plan (09/10/2019 9:36 AM CDT): Stable. Assessment & Plan (03/07/2019 11:33 AM [employer] ACQUISITIONS BANKER): Monitored by Cardiology (Virgilio Krause MD). Assessment & Plan (05/02/2018 11:20 AM [employer] AND ACQUISITIONS BANKER): Monitored by Cardiology (Dr. Virgilio Krause) Assessment & Plan (08/28/2017 12:14 PM CDT): Monitored by Cardiology (Dr. Virgilio Krause) Vitamin D deficiency 03/12/2014 Overview (06/02/2016): Vitamin D deficiency Assessment & Plan (03/11/2020 6:26 PM [employer] AND ACQUISITIONS BANKER): Known diagnosis, continue with vitamin-D supplement, recheck vitamin-D level Assessment & Plan (09/10/2019 9:36 AM CDT): Images from the original note were not included. Assessment & Plan (05/02/2018 11:39 AM MERG[employer] AND ACQUISITIONS BANKER): Images from the original note were not [...] therapy. Assessment & Plan (03/22/2021 12:42 PM MERGERS AND ACQUISITIONS BANKER): Doing well with flomax. Continue flomax 0.4mg daily. Assessment & Plan (03/11/2020 6:23 PM [employer] ACQUISITIONS BANKER): Well controlled, continue with Flomax Assessment & Plan (10/16/2019 1:08 PM CDT): Known diagnosis, followed by Urology. Remains on tamsulosin. Recommend going to finasteride every day instead of every week, he verbalized understanding. Assessment & Plan (03/07/2019 11:36 AM [employer] AND ACQUISITIONS BANKER): BPH with urinary frequency and diminished stream. Assessment & Plan (05/02/2018 11:37 AM MER[employer] AND ACQUISITIONS BANKER): Continue tamsulosin. referral provided Assessment & Plan [...] year. Assessment & Plan (01/24/2022 1:51 PM [employer] ACQUISITIONS BANKER): Continue nightly CPAP. Assessment & Plan (12/19/2021 4:31 PM CDT): Reports good compliance with CPAP, continue current therapy Assessment & Plan (11/16/2021 5:51 PM CDT): Continue with CPAP at night Assessment & Plan (03/22/2021 12:45 PM [employer] ACQUISITIONS BANKER): Patient with good compliance with using CPAP machine. Assessment & Plan (09/12/2020 4:16 PM CDT): Known diagnosis, reports good compliance with CPAP at night. His blood pressure remains well controlled. Discussed the importance of continuing with therapy as it relates to chronic illness. He verbalized understanding Assessment & Plan (03/11/2020 6:26 PM [employer] ACQUISITIONS BANKER): Known diagnosis, uses CPAP at night, reports good compliance. Feels that the therapy is working well for him, follow-up with sleep medicine as scheduled. Assessment & Plan (10/16/2019 1:10 PM CDT): Known diagnosis, uses CPAP at night, compliant with current therapy. Follow-up with sleep medicine as scheduled. Assessment & Plan (09/10/2019 9:37 AM CDT): Continue CPAP Assessment & Plan (03/07/2019 11:32 AM MERG[employer] AND ACQUISITIONS BANKER): Continue CPAP. Assessment & Plan (05/02/2018 11:28 AM MERGERS AND ACQUISITIONS BANKER): Mnagement per Placido Owens MD Assessment & Plan (08/28/2017 12:14 PM CDT): Recent exam per Dr. Owens. Resolved Problems Problem Noted Date Diagnosed Date Resolved Date Hypoventilation 10/04/2023 04/23/2024 Assessment & Plan (10/04/2023 11:49 AM CDT): Instructed on diaphragmatic breathing exercises. Myocardial infarction 06/28/20222023 Cataract 06/20/2022 04/19/2023 Localized swelling of right lower extremity 02/28/2022 04/19/2023 Assessment & Plan (02/28/2022 11:11 PM [employer] AND ACQUISITIONS BANKER): Suspect related to venous stasis. Ultrasound completed today without evidence of DVT. Discussed the importance of compression stockings, elevation. Continue with current medications, strict return precautions given. Weight is stable, no concern for overt volume overload at this time though patient given very strict return precautions Subacute bacterial endocarditis 11/17/2021 04/13/2022 Assessment & Plan (02/01/2022 4:40 PM [employer] AND ACQUISITIONS BANKER): He completed six weeks of IV antibiotics around 12/16/21 for strep mutans bacterial endocarditis. He had mitral valve repair on 01/12/22 and has been doing well.No fever or chills. Consider routine labs at follow up end of next month. Assessment & Plan (01/24/2022 1:53 PM MERGERS AND ACQUISITIONS BANKER): Patient completed six weeks of IV antibiotics [...] remarkable. Assessment & Plan (03/22/2021 12:47 PM MERGERS AND ACQUISITIONS BANKER): Had COVID infection January 2021 with long [...] 09/21/19 Assessment & Plan (03/22/2021 12:49 PM MERGERS AND ACQUISITIONS BANKER): Cough and shortness of breath for six [...] is important that you adhere to the [id number] recommendations other than for essential outings. Feel [...] 10/16/2019 Assessment & Plan (03/07/2019 11:52 AM MERGERS AND ACQUISITIONS BANKER): Your Personalized Preventive Plan Thank you for [...] the test being performed,please contact the office. [address] [address] Thank you for selecting our office for your health care needs. We are committed to providing excellent patient care. Please feel free to contact us with any questions or concerns. Assessment & Plan (05/02/2018 11:40 AM MERGERS AND ACQUISITIONS BANKER): Your Personalized Preventive Plan Thank you for [...] take one capsule daily 0 0 zinc ([id number]) 15 mg tablet take 1/2 tablet daily [...] 09/10/2020 Assessment & Plan (03/11/2020 6:23 PM MERGERS AND ACQUISITIONS BANKER): Discussed diet and exercise, the importance of gradual and progressive weight loss. Assessment & Plan (10/16/2019 1:08 PM CDT): Discussed diet and exercise, the importance of gradual and progressive weight loss. Assessment & Plan (03/07/2019 11:31 AM MERGERS AND ACQUISITIONS BANKER): An optimal BMI (body mass index) is [...] management. Assessment & Plan (05/02/2018 11:16 AM MERGERS AND ACQUISITIONS BANKER): BMI satisfactory. A healthy diet and routine [...] Overview (06/02/2016): Left acute serous otitis media Encounters Date Type Department Care Team Description 04/24/2024 Results Follow-Up [facility] Primary Care at [address] [place] [phone] Selam Gamez DNP 04/23/2024 2:09 PM [employer]ITION[employer] BANKER - 04/23/2024 11:59 PM [employer]ISITION[employer] BANKER Hospital Encounter [id number] [place] [phone] Discharge Disposition: Discharge to home or self care 04/23/2024 1:50 PM [employer] AND ACQUISITIONS BANKER Lab [facility] Primary Care at [address] [place] [address] Need for hepatitis B screening test; Medicare annual wellness visit, subsequent; Screening for prostate cancer 04/23/2024 1:00 PM [employer] ACQUISITION[employer] BANKER Office Visit [facility] Primary Care at [facility] [address] [place] [address] Selam Gamez DNP Medicare annual wellness [...] B screening test from Last 3 Months Immunizations Immunization Administration Dates Next Due DTaP [...] Pneumococcal Polysaccharide PPV23 12/19/2016, Td, adsorbed 02/22/2008 Surgical History Surgery Date Site/Laterality Comments HERNIA REPAIR 02/26/2009 - 02/25/2010 VASECTOMY SINUS SURGERY ARTHRODESIS Bilateral Ankles VASECTOMY REVERSAL MITRAL VALVE REPLACEMENT 01/12/2022 MV Repair 32mm Carrizales Ring, via right Mini-Thoracotomy Medical History Medical History Date Comments Vitamin D deficiency Primary osteoarthritis of left knee Cataract Primary hypertension Obstructive sleep apnea shana latisha with continuous positive airway pressure (CPAP) Myocardial infarction (HCC) Streptococcal bacteremia Nonrheumatic mitral valve regurgitation 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 heart disease without heart failure Mitral valve prolapse Mixed hyperlipidemia Paroxysmal atrial fibrillation (HCC) Nonsustained ventricular tachycardia Other specified glaucoma Umbilical hernia without obstruction and without gangrene Benign prostatic hyperplasia with weak urinary s tream 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 History of COVID-19 Complete tear of anterior cruciate ligament of l eft knee Subacute bacterial endocarditis 12/2021 Family History Medical History Relation Name Comments Other Daughter 2 Alive and well; Other Father Perforated visc us Breast cancer Mother Nicole Field Cancer Mother Nicole Field Other Son 2 Alive and well; Relation Name Status Comments Daughter 1 Alive Daughter 2 Father (Age 56) Maternal Grandfather Maternal Grandmother Mother Nicole Field (Age 45) Paternal Grandfather Paternal Grandmother Son 1 Alive Son 2 Social History Tobacco Use Types Packs/Day Years [...] and Family Not on file 01/23/2022 Attends [employer] Not on file 01/23 Active Member [...] place to sleep or slept in a assisted (including now)? No 01/23/2022 Sex and Gender Information Value Date Recorded Sex Assigned at Not on file Legal Sex Male 1:49 AM [employer]ITIONS BANKER Gender Identity Not on file Sexual Orientation Not on file Occupation Industry Job Start Date Job End Date Retired Not on file Not on file Not on file Obstetrics History Last Filed Vital Signs Vital Sign Reading Time Taken Comments Blood Pressure 110/62 04/23/2024 12:52 PM [employer]ITION[employer] B[employer]ER Pulse 76 04/23/2024 12:52 PM [employer]IS[employer] B[employer]ER Temperature 36.7 C (98 F) 11/15/2023 3:34 PM CDT Respiratory Rate 16 11/15/2023 3:34 PM CDT Oxygen Saturation 92% 04/23/2024 12:52 PM [employer] ACQUISITIONS BANKER Inhaled Oxygen Concentration - - Weight 86.3 kg (190 lb 4.8 oz) 04/23/2024 12:52 PM [employer] ACQUIS[employer] B[employer]ER Height 172.7 cm (5' 8 ) 04/23/2024 12:52 PM [employer] ACQUISITIONS BANKER Body Mass Index 28.94 04/23/2024 12:52 PM [employer] ACQUISITION[employer] BANKER Plan of Treatment Health Maintenance Due Date Last Done Comments Influenza Vaccine (#1) 2023 , 03/09/2020, 12/19/2016, Additional history exists Depression Screening 04/23/2025 04/23/2024, 04/19/2023, 04/13/2022, Additional history exists Fall Risk Assessment 04/23/2025 04/23/2024, 04/19/2023, 04/13/2022, Additional history exists Well Visit 65+ 04/23/2025 04/23/2024, 03/30, 04/13/2022, Additional history exists Zoster Vaccine (1 of 2) 04/23/2025 Post poned from 02/07/1959 (Insurance / Financial) DTaP/Tdap/Td Vaccine (2 - Tdap) 08/29/2027 08/28/2017, 02/22/2008 Pneumococcal vaccine 65+ Completed 022, 12/19/2016, 09/30/2014, Additional history exists Hepatitis B Screening Completed 04/23/2024 Medical Devices Implanted Type Area [employer] Device Identifier Shelf Expiration Date Model / Serial / Lot [employer] Device Clsr Perclose Prostyle Sut-Mediatd Closure-Repair Sys 80313-04 - S0 - [id number] Implanted:Qty: 1 on 11/17/2021 by Ruddy Perkins MD at [facility] Other - see comments Right: Femoral [employer] 07/27/2023 [id number] / [id number] / [id number] Description:Right femoral ar bernard Carrizales [employer] Estelle-[place]wa rds Physio Ii 32mm Diaz Sew Mitral Ring [id number] - [id number] - [id number] Implanted:Qty: 1 on 01/12/2022 by Willam Carranza MD at [facility] N/A: Mitral Valve [employer] 08/09/2026 [id number] / [id number] / Procedures Procedure Name Priority Date/Time Associated Diagnosis Comments EGFR Routine 04/23/2024 1:53 PM [employer] BANKER Medicare annual wellness visit, subsequent DIFFERENTIAL AUTO Routine 04/23/2024 1:5 3 PM [employer] B[employer]ER Medicare annual wellness visit, subsequent HEMOGLOBIN A1C Routine 04/23/2024 1:53 PM [employer] B[employer]ER Medicare annual wellness visit, subsequent LIPID PANEL Routine 04/23/2024 1:53 PM [employer] B[employer]ER Medicare annual wellness visit, subsequent THYROID FUNCTION CASCADE Routine 04/23/2024 1:53 PM [employer] BANKER Medicare annual wellness visit, subsequent PSA SCREEN Routine 04/23/2024 1:53 PM [employer] B[employer]ER Screening for prostate cancer CBC WITH AUTO DIFFERENTIAL Routine 04/23/2024 1:53 PM [employer] B[employer]ER Medicare annual wellness visit, subsequent COMPREHENSIVE METABOLIC PANEL Routine 04/23/2024 1:53 PM [employer] BANKER Medicare annual wellness visit, subsequent HEPATITIS B SURFACE ANTIGEN Routine 04/23/2024 1:53 PM [employer] B[employer]ER Need for hepatitis B screening test HEPATITIS B CORE ANTIBODY, TOTAL Routine 04/23/2024 1:53 PM [employer]IS[employer] BANKER Need for hepatitis B screening test HEPATITIS B SURFACE ANTIBODY (IMMUNE STATUS) Routine 04/23/2024 1:53 PM [employer] ACQUISITION[employer] BANKER Need for hepatitis B screening test from Last 3 Months Results * eGFR (04/23/2024 1:53 PM [employer] AND ACQUISITIONS BANKER) eGFR 76 >=60 mL/min/1. 73 m2 Comment: [...] last reviewed 2020. Blood 04/23/2024 1:53 PM [employer]ISITION[employer] BANKER 04/23/2024 7:46 PM [employer] ACQU[employer]ITIONS BANKER us Selam Gamez DNP LAB BLOOD ORDERABLES Final R esult [facility] [address] Department [place] [address] * Differential, auto (04/23/2024 1:53 PM [employer] ACQUISITIONS BANKER) Neutrophil abs 5.6 1.5 - 6.5 K/cumm Imm gran abs 0.0 0.0 - 0.1 K/cumm [facility] Lymphocyte abs 2.2 0.8 - 3.3 K/cumm [facility] Monocyte abs 0.6 0.2 - 0.8 K/cumm [facility] Eosinophil abs 0.2 0.0 - 0.5 K/cumm [facility] Basophil abs 0.0 0.0 - 0.1 K/cumm [facility] Neutrophil pct 64.3 % [facility] Comment: Interpretive Data Percent cell count reference ranges are not reported, since discordance with absolute values may lead to misinterpretation of CBC data. Current Interpretive Data was last revised on 2017. Imm gran pct 0.2 % [facility] Comment: Interpretive Data Percent cell count reference ranges are not reported, since discordance with absolute values may lead to misinterpretation of CBC data. Current Interpretive Data was last revised on 2017. Lymphocyte pct 25.8 % [facility] Comment: Interpretive Data Percent cell count reference ranges are not reported, since discordance with absolute values may lead to misinterpretation of CBC data. Current Interpretive Data was last revised on 2017. Monocyte pct 6.7 % [facility] Comment: Interpretive Data Percent cell count reference ranges are not reported, since discordance with absolute values may lead to misinterpretation of CBC data. Current Interpretive Data was last revised on 2017. Eosinophil pct 2.5 % [facility] Comment: Interpretive Data Percent cell count reference ranges are not reported, since discordance with absolute values may lead to misinterpretation of CBC data. Current Interpretive Data was last revised on 2017. Basophil pct 0.5 % [facility] Comment: Interpretive Data Percent cell count reference ranges are not reported, since discordance with absolute values may lead to misinterpretation of CBC data. Current Interpretive Data was last revised on 2017. Blood 04/23/2024 1:53 PM [employer]ITION[employer] BANKER 04/23/2024 7:44 PM [employer] ACQU[employer]ITION[employer] B[employer]ER Selam Gamez [facility] LAB BLOOD ORDERABLES Final R esult Performing Organization Address City/[facility]/ZIP Co de Phone Number [facility] [address] [place] [address] * Thyroid Function Boyd (04/23/2024 1:53 PM [employer] BANKER) TSH 0.35 0.30 - 4.20 mcIUnit/mL Blood 04/23/2024 1:53 PM [employer] B[employer]ER 04/23/2024 7:46 PM [employer] BANKER Selam Gamez [facility] LAB BLOOD ORDERABLES Final R esult Performing Organization Address City/[facility] Co de Phone Number [facility] [address] [place] [address] * PSA screen (04/23/2024 1:53 PM [employer] B[employer]) PSA-Total 0.33 <=6.20 ng/mL Comment: Interpretive Data [...] last revised 21. Blood 04/23/2024 1:53 PM [employer] B[employer]ER 04/23/2024 7:46 PM [employer] B[employer]ER Selam Gamez [facility] LAB BLOOD ORDERABLES Final R esult Performing Organization Address City/[facility]/ZIP Co de Phone Number [facility] [address] [place] [address] * (ABNORMAL) CBC with auto differential (04/23/2024 1:53 PM [employer]) WBC 8.7 3.8 - 9.9 K/cumm Hgb 15.0 13.0 - 17.5 g/dL [facility] Hct 46.6 38.9 - 50.3 % [facility] Plt 191 150 - 400 K/cumm [facility] MPV 11.6 9.1 - 12.3 fL [facility] RBC 5.00 4.30 - 5.80 M/cumm [facility] MCV 93.2 81.3 - 96.4 fL [facility] MCH 30.0 27.1 - 33.3 pg [facility] MCHC 32.2(L) 32.3 - 35.7 g/dL [facility] RDW CV 15.4(H) 11.1 - 14.9 % [facility] RDW SD 52.6(H) 35.7 - 48.1 fL [facility] NRBC abs 0.00 0.00 - 0.01 K/cumm [facility] Blood 04/23/2024 1:53 PM [employer] B[employer]ER 04/23/2024 7:44 PM [employer] B[employer]ER Selam Gamez [facility] LAB BLOOD ORDERABLES Final R esult Performing Organization Address City/[facility]/ZIP Co de Phone Number [facility] [address] [place] [address] * Hepatitis B core antibody, total Blood (04/23/2024 1:53 PM [employer] B[employer]) Pathologist [facility] Hep B core IgG/IgM Nonreactive Nonreactive Comment:Testing performed by : [facility], [address] [place]., [address] Blood 04/23/2024 1:53 PM [employer] B[employer]ER 04/23/2024 9:47 PM [employer] B[employer]ER Selam Gamez DNP LAB MICROBIOLOGY - GENERAL O RDERABLES Final Result Performing Organization Address City/[facility]/ZIP Co de Phone Number [facility] [address] [place] [address] * Hepatitis B surface antibody (immune status) Blood (04/23/2024 1:53 PM [employer] B[employer]ER) [facility] HBsAb (immune status) Nonreactive Comment: This result is consistent with a lack of immunity to Hepatitis B Virus when used in the setting of routine screening. Current interpretative data was last revised on 21 Testing performed by: [facility], [address] [place]., [address] Blood 04/23/2024 1:53 PM [employer] BANKER 04/23/2024 9:47 PM [employer] B[employer]ER Selam Gamez DNP LAB MICROBIOLOGY - GENERAL O RDERABLES Final Result [facility] [address] Department [place] [address] * Hepatitis B Surface Antigen Blood (04/23/2024 1:53 PM [employer] B[employer]ER) Pathologist [facility] HepBsAg Nonreactive Nonreactive Blood 04/23/2024 1:53 PM [employer] B[employer]ER 04/23/2024 7:42 PM [employer] B[employer]ER Selam Gamez DNP LAB MICROBIOLOGY - GENERAL O RDERABLES Final Result Performing Organization Address [facility] Co de Phone Number [facility] [address] [place] [address] * Hemoglobin A1c (04/23/2024 1:53 PM [employer]) Hgb A1C 5.0 4.0 - 5.6 % Estimated Average Glucose 97 mg/dL [facility] Comment: The ADA recommends reporting an estimated Average Glucose (eAG) with all Hemoglobin A1c results using the equation derived from a study of 507 normal and diabetic adults. Minority populations were underrepresented and children were not included. (Diabetes Care 31:1320-8010, 2008). The eAG is not equivalent to a fasting glucose. Blood 04/23/2024 1:53 PM [employer] B[employer]ER 04/23/2024 7:44 PM [employer] B[employer]ER Selam Gamez [facility] LAB BLOOD ORDERABLES Final R esult Performing Organization Address [facility] Co de Phone Number [facility] [address] Department [place] [address] * Lipid panel (04/23/2024 1:53 PM [employer]ER) Pathologist [facility] Cholesterol 106 30 - 199 mg/dL [...] revised on 2017. Triglycerides 61 <=149 mg/dL [facility] Comment: Interpretive Data Ages < or = [...] revised on 2017. HDL 43 >=40 mg/dL [facility] Comment: Interpretive Data Ages < or = [...] on 2017. LDL, calculated 49 <=129 mg/dL [facility] Comment: Interpretive Data Ages < or = [...] revised on 2023. Non-HDL Cholesterol 63 mg/dL [facility] Comment: Interpretive Data Ages < or = [...] last revised on 2017. Chol/HDL ratio 2 [facility] Blood 04/23/2024 1:53 PM [employer] B[employer]ER 04/23/2024 7:46 PM [employer] BANKER us Selam Gamez DNP LAB BLOOD ORDERABLES Final R esult [facility] [address] Department [place] [address] * Comprehensive metabolic panel (04/23/2024 1:53 PM [employer] B[employer]ER) Sodium 140 135 - 145 mmol/L Potassium, pl 4.7 3.3 - 4.9 mmol/L [facility] Chloride 104 97 - 110 mmol/L [facility] CO2 26 22 - 32 mmol/L [facility] Anion gap 10 2 - 15 mmol/L [facility] BUN 15 6 - 25 mg/dL [facility] Creatinine 0.98 0.80 - 1.30 mg/dL [facility] Glucose 92 70 - 199 mg/dL [facility] Comment: Interpretive Data Fasting glucose >/= 126 [...] 2022. Calcium 9.2 8.5 - 10.3 mg/dL [facility] Bilirubin, total 0.8 0.1 - 1.2 mg/dL [facility] Protein, pl 6.8 6.5 - 8.5 g/dL [facility] Albumin 4.3 3.5 - 5.0 g/dL [facility] Alk phos 60 40 - 130 Units/L [facility] ALT 34 7 - 55 Units/L [facility] AST 32 10 - 50 Units/L [facility] Blood 04/23/2024 1:53 PM [employer] B[employer]ER 04/23/2024 7:46 PM [employer] BANKER Selam Gamez DNP LAB BLOOD ORDERABLES Final R esult [facility] [address] [place] [address] from Last 3 Months Insurance MEDICARE [facility] Address[id number] [place] [address] [facility] MEDICARE [facility] MEDICARE [facility] Address: [facility] [id number] [place] [address] Advance Directives For more information, please contact: [phone] * Full Code (Latest Code Status on File) Date Activated Date Inactivated Comments 01/12/2022 1:07 PM 01/20/2022 8:54 PM * Full Code Date Activated Date Inactivated Comments 11/15/2021 5:10 AM 11/22/2021 6:43 PM * Full Code Date Activated Date Inactivated Comments 11/03/2021 6:24 PM 11/04/2021 9:47 PM Care Teams Tobacco Hanger Relationship Specialty Start Date End Date Denice Ruddy JoniDO [address] [facility] [address] [place] [address] PCP - General Family Medicine 10/16/19 Vonnie Holly, PT Physical Therapist Physical Therapy 09/11/17 Galina Landry, PROCESS SAFETY MANAGEMENT ENGINEER [employer] Physical Therapy 09/17/17 Rina Beasley, PROCESS SAFETY MANAGEMENT ENGINEER [employer] Physical Therapy 09/24/17 Alla Bruce, PT Physical Therapist Physical Therapy 10/04/17 Kishan Romero MD [address] [place] [address] Referring Physician Orthopedic Surgery 11/05/17 Willam Suarez MD [address] [facility] [address] [place] [address] [employer]ing Coordinator Cardiology 06/29/22
--- OUTSIDE RECORDS SUMMARY | 2024-05-27 14:07 | XMS_ITS | Encounter Summary ---
Author Organization [facility] Healthcare Address [address] [place] [address] Care Team Providers Care Medical Aide Name Role Phone Vonnie Holly PT Unavailable Unavailable Galina Landry PERSONAL LINES AGENT Unavailable Unavailab Rina Burleson PTA Unavailable Unavailable Alla Bruce PT Unavailable Unavailable Kishan Romero MD Unavailable [phone] Ruddy Galdamez DO Primary Care Provider [phone] Willam Suarez MD Unavailable [phone] Encounter Details Date Type Department Care Team (Late st Contact Info) Description 04/24/2024 Results Follow-Up [facility] Primary Care at [facility] [address] [facility] [address] [facility] [place] [address] Selam Gamez, SUNDAR [address] [facility] [address] [place] [address] Social History Tobacco Use Types Packs/Day Years [...] and Family Not on file 01/23/2022 Attends [employer] Not on file 01/23 Active Member [...] place to sleep or slept in a senior living (including now)? No 01/23/2022 Sex and Gender Information Value Date Recorded Sex Assigned at Not on file Legal Sex Male 1:49 AM IT RISK ANALYST Gender Identity Not on file Sexual Orientation Not on file Occupation Industry Job Start Date Job End Date Retired Not on file Not on file Not on file documented as of this encounter Plan of Treatment Not on file documented as of this encounter Visit Diagnoses Not on filedocumented in this encounter Care Teams Medical Aide Relationship Specialty Start Date End Date Ruddy Galdamez DO [address] [facility] [address] [place] [address] PCP - General Family Medicine 10/16/19 Vonnie Holly, PT Physical Therapist Physical Therapy 09/11/17 Galina Landry, PERSONAL LINES AGENT Engineering Surveyor Physical Therapy 09/17/17 Rina Beasley, PERSONAL LINES AGENT Engineering Surveyor Physical Therapy 09/24/17 Alla Bruce, PT Physical Therapist Physical Therapy 10/04/17 Kishan Romero MD [address] [place] [address] Referring Physician Orthopedic Surgery 11/05/17 Willam Suarez MD [address] [facility] [address] [place] [address] Mentally Impaired Teacher Cardiology 06/29/22 documented as of this encounter
--- OUTSIDE RECORDS SUMMARY | 2024-05-27 14:07 | XMS_ITS | Clinical Summary ---
Author Organization [facility] Address [address] [place] [address] Phone Care Team Providers Care Occupational Therapy Manager Name Role Phone Ruddy Galdamez Primary Care Provider [phone] Allergies Active Allergy Reactions Criticality Noted Date Comments Levofloxacin Other (see Comments),Rash High 02/04/2015 Reaction: Rash, , Reaction: Rash, , Reaction: unknown, Medications aspirin EC 81 MG Tablet Delayed Response Take 81 mg by mouth. Active atorvastatin (LIPITOR) 10 MG Tablet TAKE 1 TABLET(10 MG) BY MOUTH DAILY 1 Active Cholecalciferol 2000 UNIT Capsule take 3 tablets daily 4 Active Magnesium Oxide 400 MG Capsule Take by mouth. 0 Active metoprolol Succinate (TOPROL-XL) 50 MG TABLET SR 24 HR TAKE 1 TABLET(50 MG) BY MOUTH DAILY 1 Active sildenafil (REVATIO) 20 MG Tablet 1-2 tablets as needed for erectile dysfunction 0 Active Travoprost, TIMOTHY Free, (Travatan Z) 0.004 % Solution 0.004 %. 5 Active tamsulosin (FLOMAX) 0.4 MG Capsule Take 0.4 mg by mouth. 0 Active methylPREDNISol one (Medrol) 4 MG Tablet Therapy PackIndications :Cough Use as per instructions on package. 21 Tablet 1 Active Active Problems No known active problems Social History Tobacco Use Types Packs/Day Years Used Date Smoking Tobacco: Never Smokeless Tobacco: Never Alcohol Use Standard Drinks/Week Comments Not Currently 0 (1 standard drink = 0.6 oz pur e alcohol) Sexually Active Control Partners Comments Not Currently Sex and Gender Information Value Date Recorded Sex Assigned at Not on file Legal Sex Male 9:48 PM CDT Gender Identity Not on file Sexual Orientation Not on file Last Filed Vital Signs Vital Sign Reading Time Taken Comments Blood Pressure 140/82 02/14/2021 2:12 PM MIGRANT LEADER Pulse 86 02/14/2021 2:12 PM MIGRANT LEADER Temperature 36.3 C (97.3 F) 02/14/2021 2:12 PM MIGRANT LEADER Respiratory Rate 16 02/14/2021 2:12 PM MIGRANT LEADER Oxygen Saturation 94% 02/14/2021 2:12 PM MIGRANT LEADER Inhaled Oxygen Concentration - - Weight 82.6 kg (182 lb) 02/14/2021 2:12 PM MIGRANT LEADER Height - - Body Mass Index - - Plan of Treatment Health Maintenance Due Date Last Done Comments Hepatitis C Virus (HCV) Screening 1940 TdaP Immunization 1940 Zoster Immunization (1 of 2) 02/07/1990 Respiratory Syncytial Virus (RSV) Immunization (Adult) (1 - 1-dose 75+ series) 02/07/2015 Influenza Immunization (#1) 10/28/202302/26, 12/19/2016 SARS-COV-2 Immunization (2023- season) 2023 Pneumococcal Immunization (50+ years) Completed 12/19/2016, 09/30/2014, 02/21/2007 DTaP/Tdap/Td Immunization Discontinued 2017, 02/22/2008 Hepatitis B Immunization Aged Out No longer eligible based on patient's age to complete this topic Meningococcal Immunization (ACWY) Aged Out No longer eligible based on patient's age to complete this topic Rotavirus Immunization Aged Out No lo nger eligible based on patient's age to complete this topic Insurance MEDICARE [employer] Care Teams Occupational Therapy Manager Relationship Specialty Start Date End Date Ruddy Galdamez DO [id number] [place] [address] PCP - General Family Medicine 02/08/21
== END 2024-05-27 12:58 | disposition home or self-care (01) ==
LOC: CHSLAB 13:00
PROVIDERS: PCP Specialist; Visit Provider Specialist
DX: L72.8 Other follicular cysts of the skin and subcutaneous tissue (principal)
CPT/HCPCS: 88305